=== PATIENT | male | born 1950 | race Caucasian/White ===

== ENCOUNTER 2017-03-11 11:12 | Inpatient (IN) ==
--- NOTE | 2017-03-11 11:21 | Emergency Department Note ---
Disposition Clinical Impression: Bleeding, Elevated troponin, Pleural effusion, Abdominal wall cellulitis Leukocytosis Qualifiers: Leukocytosis type: unspecified Qualified Code(s): D72.829 - Elevated white blood cell count, unspecified Anemia Qualifiers: Anemia type: unspecified type Qualified Code(s): D64.9 - Anemia, unspecified Chest pain Qualifiers: Chest pain type: unspecified Qualified Code(s): R07.9 - Chest pain, unspecified Dyspnea Qualifiers: Dyspnea type: unspecified Qualified Code(s): R06.00 - Dyspnea, unspecified Pneumonia Qualifiers: Pneumonia type: due to unspecified organism Laterality: bilateral Lung location : lower lobe of lung Qualified Code(s): J18.9 - Pneumonia, unspecified organism Disposition: Admitted As Inpatient Condition: Serious Time of Disposition: 14:15 Chest Pain HPI - General Chief Complaint: ED Chest Pain Stated Complaint: CARLEY, CP Time Seen by Provider: 03/11/17 11:17 Source: patient, EMS Mode of arrival: EMS Limitations: no limitations Vital Signs Reviewed: Yes Nursing Notes Reviewed: Yes - History of Present Illness HPI Narrative: Patient is a 66-year-old male with past medical history of hypertension, diabetes, high cholesterol, previous [place] with stenting, recent removal of hematoma from the left hip/thigh with a MISAEL drain going into the left abdomen. He presents today as a transfer from the [facility] due to chest pain, shortness of breath, hypoxia, elevated troponin. He states that he has had chest pain last 3 days. At first, the pain was in the center of his chest and intermittent, he had associated nausea and vomiting, shortness of breath, radiation of the pain to his left jaw. At that time, it would last for several minutes and then go away. Today, the chest pain has been in the center of his chest, squeezing sensation, constant. He was seen at the [facility] and had a positive troponin at 3.1. He is also hypoxic in the 80s on room air. He was transferred here for further care. Patient also notes that he had a PET scan done about a week ago and was told that he had lung nodules and pneumonia. He was supposed to have a antibiotic called in last week but never received this. Currently complains of shortness of breath, diffuse abdominal pain, mild substernal chest pain. Denies any nausea, vomiting, fevers currently. - Related Data Home Medications Medication Instructions Recorded Confirmed Albuterol Sulfate [Albuterol 2 puff IH Q6HR PRN 12/03/15 03/07/17 Inhaler] Aspirin Enteric Coated [Aspirin EC] 81 mg PO DAILY 12/03/15 03/07/17 Atorvastatin [Lipitor] 10 mg PO HS 12/03/15 03/07/17 FLUoxetine HCl [Prozac] 40 mg PO QAM 12/03/15 03/07/17 Furosemide [Lasix] 20 mg PO BID 12/03/15 03/07/17 Gabapentin [Neurontin] 900 mg PO TID 12/03/15 03/07/17 Ipratropium [ATROVENT Inhaler] 2 puff IH QID PRN 12/03/15 03/07/17 Multivitamin [One Daily Essential] 1 each PO DAILY 12/03/15 03/07/17 Nitroglycerin [Nitrostat] 0.4 mg SL AD PRN 12/03/15 03/07/17 Potassium Chloride [K-Tab ER] 10 meq PO DAILY 12/03/15 03/07/17 Trazodone HCl [TraZODone] 200 mg PO HS 12/03/15 03/07/17 Witch Salma [Preparation H] 1 each TP QID 12/03/15 03/07/17 Calcium Citrate 200 mg PO DAILY 03/07/17 03/07/17 Carvedilol [Coreg] 25 mg PO BID 03/07/17 03/07/17 Dicyclomine [Bentyl] 20 mg PO BID PRN 03/07/17 03/07/17 Isosorbide MONOnitrate (24 HR) 60 mg PO DAILY 03/07/17 03/07/17 [Imdur] Metformin HCl [Glucophage] 1,000 mg PO BID 03/07/17 03/07/17 NIFEdipine [Nifedipine ER] 120 mg PO DAILY 03/07/17 03/07/17 Pantoprazole Sodium [Protonix] 40 mg PO DAILY 03/07/17 03/07/17 Tamsulosin [Flomax] 0.4 mg PO DAILY 03/07/17 03/07/17 Previous Rx's Medication Instructions Recorded Adhesive Tape [Paper Tape] 1 each TP DAILY #1 tape 03/08/17 Docusate [Colace] 100 mg PO BID PRN #30 03/08/17 Gauze Bandage [Gauze Pads] 1 unit TP DAILY #1 pack 03/08/17 Gauze Bandage [Gauze] 1 each TP DAILY #1 pack 03/08/17 OxyCODONE/APAP 10/325 [Percocet 1 each PO Q4HR PRN #42 tab 03/08/17 10/325 MG] Allergies Allergy/AdvReac Type Severity Reaction Status Date / Time No Known Allergies Allergy Verified 03/07/17 08:11 All systems ED: reviewed and negative except as stated. Constitutional: Denies: fever Cardiovascular: Reports: chest pain, dyspnea on exertion Respiratory: Reports: dyspnea Gastrointestinal: Reports: abdominal pain. Denies: nausea, vomiting, diarrhea Endocrine: Reports: fatigue Chest Pain PMH - Past Medical History Medical history: Reports: COPD, diabetes, hypertension Surgical history: Reports: appendectomy Psychiatric history: Reports: anxiety, depression, panic disorder - Social History Smoking Status: Former smoker Alcohol use: Reports: none Drug use: Reports: none Physical Exam - General Limitations: no limitations General appearance: alert, other (appears fatigued) - Head Head exam: atraumatic, normocephalic, normal inspection - Eye Eye exam: Present: normal appearance, PERRL, EOMI - ENT ENT exam: normal exam, normal oropharynx, mucous membranes moist - Neck Neck exam: Present: normal inspection, full ROM, trachea midline - Chest Chest inspection: Present: normal inspection, symmetric chest wall rise. Absent : tenderness - Respiratory Respiratory exam: Present: other (Mild wheeze in the lateral lower lobes.Mildly tachypnic. ) - Cardiovascular Cardiovascular exam: Present: regular rate, normal rhythm, normal heart sounds - Abdominal Exam Abdominal exam: Present: soft, tenderness (Tenderness of the left abdomen and left flank wiht cellulitic changes and bruising around MISAEL drain site; MISAEL drain has bright red liquid blood in bulb ). Absent: distention, guarding, rebound, rigidity - Extremities Exam Extremities exam: Present: normal inspection, full ROM, pedal edema (Mild edema bilteral LE). Absent: tenderness - Back Exam Back exam: Present: other (left lumbar/flank bruising) - Neurological Exam Neurological exam: Present: alert, oriented X3 - Psychiatric Psychiatric exam: Present: normal affect, normal mood - Skin Skin exam: Present: warm, dry, intact, normal color Course Course Narrative: Vitals currently within normal limits on nasal cannula oxygen 4 L. Physical exam shows fatigued patient with wheezes in bilateral LL. Tenderness of the left abdomen and left flank wiht cellulitic changes and bruising around MISAEL drain site, bruising of left flank and back; MISAEL drain has bright red liquid blood in bulb. We will obtain cardiac workup, CTA of the chest assess for pneumonia versus PE, CT abdomen and pelvis with IV contrast to assess for bleeding. We will repeat troponin and basic labs. We will give patient aspirin as he did not receive this at the [facility]. No chest pain on current assessment. We will give nitroglycerin or morphine depending on blood pressure. EKG shows diffuse ST depressions. No anticoagulation at this point due to active bleeding. We will wait until CT scan comes back and then touch base with cardiology. Patient has been typed and screened and will give 2 units due to hemoglobin of 7.8. 13:19 repeat troponin 7.5, increased from 3.1 at the [facility]. Second EKG was obtained and showed continued ST depression in V3 through V6, also in lead 2. CT shows: IMPRESSION: 1. No acute pulmonary embolism. 2. Bilateral ground-glass opacities throughout the lungs are concerning for an infectious or inflammatory process including atypical infections. 3. Small bilateral pleural effusions. 4. Percutaneous drain within a 16.5 x 7 cm collection in the left gluteal region which could be due to hematoma. Superimposed infection is not excluded. This is at the site of prior fluid collection seen on prior CT scan. 5. Stranding of the subcutaneous fat throughout the left abdomen could be due to edema and/or cellulitis. 6. Enlarged mediastinal lymph nodes are favored to be reactive. Consider follow-up CT scan in 3 months to ensure stability and/or resolution. 13:23 Patient was started on vancomycin, Levaquin, cefepime for pneumonia and left abdominal wall cellulitis. I also called Dr. King with cardiology and discussed heart catheter due to rising troponin level from 3.1 to 7.5, ST depressions seen on EKG, and inability to anticoagulate the patient at this time with heparin due to active bleeding to the left abdominal MISAEL drain. Vitals continue to be stable, not tachycardic, blood pressure 120s over 80s. Dr. King stated that there was no indication for heart cath as this was not a STEMI, and there was a contraindication to heart cath, as any stenting would require antiplatelet therapy. He recommended giving the patient blood and then medical management. Did not think that heart was warranted at this time. 13:[address] Garcia, hospitalist to discuss case (admitting here for transferring for further care), he agreed with Dr. King's plan of care as patient wouldn't be candidate for anticoagulation after cath. He feels that the patient is a candidate for 2 N. and sensitive ICU. Cannot give patient says protocol fluids due to pleural effusions, concern for fluid overload and heart failure. Patient will be receiving blood which will help with anemia and help with fluid status. Dr. Garcia accepted for further care. Chest X-Ray 03/11/17 11:21 IMPRESSION: Possible early right lower lobe pneumonia D/ / Davin Weaver MD / Davin Weaver MD Interpreting Provider: Davin Weaver MD Abdomen/Pelvis CT 03/11/17 11:24 IMPRESSION: 1. No acute pulmonary embolism. 2. Bilateral ground-glass opacities throughout the lungs are concerning for an infectious or inflammatory process including atypical infections. 3. Small bilateral pleural effusions. 4. Percutaneous drain within a 16.5 x 7 cm collection in the left gluteal region which could be due to hematoma. Superimposed infection is not excluded. This is at the site of prior fluid collection seen on prior CT scan. 5. Stranding of the subcutaneous fat throughout the left abdomen could be due to edema and/or cellulitis. 6. Enlarged mediastinal lymph nodes are favored to be reactive. Consider follow-up CT scan in 3 months to ensure stability and/or resolution. D/ / Alireza Herr MD / Alireza Herr MD Interpreting Provider: Alireza Herr MD Chest CTA 03/11/17 11:24 IMPRESSION: 1. No acute pulmonary embolism. 2. Bilateral ground-glass opacities throughout the lungs are concerning for an infectious or inflammatory process including atypical infections. 3. Small bilateral pleural effusions. 4. Percutaneous drain within a 16.5 x 7 cm collection in the left gluteal region which could be due to hematoma. Superimposed infection is not excluded. This is at the site of prior fluid collection seen on prior CT scan. 5. Stranding of the subcutaneous fat throughout the left abdomen could be due to edema and/or cellulitis. 6. Enlarged mediastinal lymph nodes are favored to be reactive. Consider follow-up CT scan in 3 months to ensure stability and/or resolution. D/ / Alireza Herr MD / Alireza Herr MD Interpreting Provider: Alireza Herr MD Vital Signs Temperature 99.2 F 03/11/17 11:14 Pulse Rate 92 03/11/17 11:14 Respiratory Rate 18 03/11/17 11:14 Blood Pressure 112/75 03/11/17 11:14 O2 Sat by Pulse Oximetry 83 03/11/17 11:14 Temperature 99 F 03/11/17 14:07 Pulse Rate 95 03/11/17 14:07 Respiratory Rate 22 03/11/17 14:07 Blood Pressure 89/73 03/11/17 14:07 O2 Sat by Pulse Oximetry 92 03/11/17 12:35 Oxygen Delivery Oxygen Delivery Nasal Cannula Chest Pain - MDM Narrative Medical decision making narrative: repeat troponin 7.5, [facility] Second EKG was obtained and showed continued ST depression in V3 through V6, also in lead 2. CT shows: IMPRESSION: 1. No acute pulmonary embolism. 2. Bilateral ground-glass opacities throughout the lungs are concerning for an infectious or inflammatory process including atypical infections. 3. Small bilateral pleural effusions. 4. Percutaneous drain within a 16.5 x 7 cm collection in the left gluteal region which could be due to hematoma. Superimposed infection is not excluded. This is at the site of prior fluid collection seen on prior CT scan. 5. Stranding of the subcutaneous fat throughout the left abdomen could be due to edema and/or cellulitis. 6. Enlarged mediastinal lymph nodes are favored to be reactive. Consider follow-up CT scan in 3 months to ensure stability and/or resolution. 13:23 Patient was started on vancomycin, Levaquin, cefepime for pneumonia and left abdominal wall cellulitis. I also called Dr. Kign with cardiology and discussed heart catheter due to rising troponin level from 3.1 to 7.5, ST depressions seen on EKG, and inability to anticoagulate the patient at this time with heparin due to active bleeding to the left abdominal MISAEL drain. Vitals continue to be stable, not tachycardic, blood pressure 120s over 80s. Dr. King stated that there was no indication for heart cath as this was not a STEMI, and there was a contraindication to heart cath, as any stenting would require antiplatelet therapy. He recommended giving the patient blood and then medical management. Did not think that heart was warranted at this time. 13:[address] Garcia, hospitalist to discuss case (admitting here for transferring for further care), he agreed with Dr. King's plan of care as patient wouldn't be candidate for anticoagulation after cath. He feels that the patient is a candidate for 2 N. and sensitive ICU. Cannot give patient says protocol fluids due to pleural effusions, concern for fluid overload and heart failure. Patient will be receiving blood which will help with anemia and help with fluid status. Dr. Garcia accepted for further care. - Medical Records Medical records reviewed: Yes I reviewed the patient's medical records. - Lab Data Lab results reviewed: Yes I reviewed the patient's lab results. Result diagrams: 03/11/17 11:29 03/11/17 11:29 Lab Results 03/11/17 03/11/17 03/11/17 Range/Units 11:29 11:29 11:29 WBC 15.3 H (4.3-11.1) K/mcL RBC 2.67 L (4.19-5.50) M/mcL Hgb 7.8 L D (12.9-16.9) g/dL Hct 24.3 L (37.5-50.1) % MCV 91.0 (83.0-100.0) fL MCH 29.2 (28.0-33.3) pg MCHC 32.1 (31.6-35.5) g/dL RDW 14.1 (11.5-14.5) % Plt Count 266 (140-400) K/mcL MPV 10.7 (9.4-12.4) fL Immature Gran % 0.9 (0-4) % Seg Neutrophils % 80.8 % Lymphocytes % 10.1 % Monocytes % 7.0 % Eosinophils % 0.7 % Basophils % 0.5 % Neutrophils # 12.3 H (1.6-8.9) K/mcL Lymphocytes # 1.6 (0.6-4.6) K/mcL Monocytes # 1.1 (0.0-1.3) K/mcL Eosinophils # 0.1 (0.0-0.6) K/mcL Basophils # 0.1 (0.0-0.2) K/mcL Nucleated RBCs/100 WBC 0.3 H (0) /100 WBC Immature Plt Fraction 4.9 (1.1-6.1) % PT 12.7 H (9.4-12.1) Seconds INR 1.2 APTT 28.5 (26.0-36.0) Seconds Sodium 136 (136-145) mEq/L Potassium 4.4 (3.5-4.5) mEq/L Chloride 103 (98-109) mEq/L Carbon Dioxide 24 (19-29) mEq/L BUN 23 (8-26) mg/dL Creatinine 1.01 (0.72-1.25) mg/dL Est GFR ( Amer) > 60 (> 60) Est GFR (Non-Af Amer) > 60 (> 60) BUN/Creatinine Ratio 23 (6-26) Glucose 142 H (70-99) mg/dL Calculated Osmolality 288 (280-300) Lactic Acid (0.5-2.2) mmol/L Calcium 9.6 (8.6-10.8) mg/dL Troponin I (0-0.03) ng/mL Blood Type Antibody Screen Crossmatch 03/11/17 03/11/17 03/11/17 Range/Units 11:29 12:16 12:16 WBC (4.3-11.1) K/mcL RBC (4.19-5.50) M/mcL Hgb (12.9-16.9) g/dL Hct (37.5-50.1) % MCV (83.0-100.0) fL MCH (28.0-33.3) pg MCHC (31.6-35.5) g/dL RDW (11.5-14.5) % Plt Count (140-400) K/mcL MPV (9.4-12.4) fL Immature Gran % (0-4) % Seg Neutrophils % % Lymphocytes % % Monocytes % % Eosinophils % % Basophils % % Neutrophils # (1.6-8.9) K/mcL Lymphocytes # (0.6-4.6) K/mcL Monocytes # (0.0-1.3) K/mcL Eosinophils # (0.0-0.6) K/mcL Basophils # (0.0-0.2) K/mcL Nucleated RBCs/100 WBC (0) /100 WBC Immature Plt Fraction (1.1-6.1) % PT (9.4-12.1) Seconds INR APTT (26.0-36.0) Seconds Sodium (136-145) mEq/L Potassium (3.5-4.5) mEq/L Chloride (98-109) mEq/L Carbon Dioxide (19-29) mEq/L BUN (8-26) mg/dL Creatinine (0.72-1.25) mg/dL Est GFR ( Amer) (> 60) Est GFR (Non-Af Amer) (> 60) BUN/Creatinine Ratio (6-26) Glucose (70-99) mg/dL Calculated Osmolality (280-300) Lactic Acid 2.3 H (0.5-2.2) mmol/L Calcium (8.6-10.8) mg/dL Troponin I 7.50 H* (0-0.03) ng/mL Blood Type B POSITIVE Antibody Screen NEGATIVE Crossmatch See Detail - Radiology Data Radiology results reviewed: Yes I reviewed the patient's radiology results. - EKG Data EKG attestation: Yes I reviewed and interpreted this EKG. Maksim - Maksim Situation: Demographics, MOA Background: Presenting Complaint, Relevant PMH, Meds, & Allergies Assessment: Vital Signs, Course and respsone to treatment, Exam Concerns, Patient/Family Expectation, Pertinant Lab Results, Outstanding Labs Recommendation: Barrier(s) to disposition, Recommendation based on pending studies, treatments, or consults Maksim Report Given to: Dr. Jose Schaeffer Repor Time: 14:15
[2017-03-11] MEDS ORDERED: Aspirin 325 MG TABLET PO ONE (11:29)
[2017-03-11] MEDS ORDERED: Nitroglycerin 0.4 MG TAB.SUBL SL PRN (11:29)
[2017-03-11 11:35] LABS: Basophils # 0.1 K/mcL (0.0-0.2); Basophils % 0.5 %; Eosinophils # 0.1 K/mcL (0.0-0.6); Eosinophils % 0.7 %; Hematocrit 24.3 % (37.5-50.1); Immature Granulocytes % 0.9 % (0-4); Immature Platelets 4.9 % (1.1-6.1); Lymphocytes # 1.6 K/mcL (0.6-4.6); Lymphocytes % 10.1 %; Mean Corpuscular HGB Conc 32.1 g/dL (31.6-35.5); Mean Corpuscular Hemoglobin 29.2 pg (28.0-33.3); Mean Platelet Volume 10.7 fL (9.4-12.4); Monocytes # 1.1 K/mcL (0.0-1.3); Neutrophils # 12.3 K/mcL (1.6-8.9); Nucleated Red Blood Cells 0.3 /100 WBC (0); Platelet Count 266 K/mcL (140-400); Red Blood Count 2.67 M/mcL (4.19-5.50); Red Cell Distribution Width 14.1 % (11.5-14.5); Segmented Neutrophils % 80.8 %
--- NOTE | 2017-03-11 11:39 | Emergency Department Note ---
START Narrative - START START: I examined this patient and my medical decision-making was reviewed with the Resident Physician. I agree with the documented findings, disposition and treatment plan as described except to the extent set forth below. 66yo M here for multiple issues. [facility] 1)pt found to have pneumonia on recent PET Scan in last week or so at the [facility]. it was done for pulmonary nodules. 2) [facility] sats 84% on RA per their report. 3) pt found to have elevated trop of 3. ekg with st depression and t wave inversion c/w ischemia and likely evolving TN. 4)pt just had left hip hematoma evacuation done 4 days ago for a chronic fluid/ mass accumulation from previous trauma. 5)pt has diffuse ecchymosis of the left hip/ left flank and lumbar region. i'm concerned for possible retropeitoneal hematoma and i feel that needs ruled out first before anticoagulation for the cardiac issue. 6)eval with CT chest/abd/pelvis
[2017-03-11 11:45] LABS: INR 1.2; Prothrombin Time 12.7 Seconds (9.4-12.1)
[2017-03-11 11:47] LABS: BUN/Creatinine Ratio 23 (6-26); Blood Urea Nitrogen 23 mg/dL (8-26); Calcium 9.6 mg/dL (8.6-10.8); Carbon Dioxide 24 mEq/L (19-29); Chloride 103 mEq/L (98-109); Glucose 142 mg/dL (70-99); Osmolality,Calculated 288 (280-300); Potassium 4.4 mEq/L (3.5-4.5); Sodium 136 mEq/L (136-145); eGFR For African Americans > 60 (> 60); eGFR For Non-African Americans > 60 (> 60)
[2017-03-11 11:48] LABS: Activated Partial Thrombo Time 28.5 Seconds (26.0-36.0)
[2017-03-11 11:53] LABS: Hemoglobin 7.8 g/dL (12.9-16.9)
[2017-03-11] MEDS ORDERED: 0.9 % Sodium Chloride 1,000 ML IVC ONE (12:06)
[2017-03-11] MEDS ORDERED: 0.9 % Sodium Chloride 1,000 ML ONE (12:14)
[2017-03-11] MEDS ORDERED: Levofloxacin 500 MG/100 ML 500 MG/100 ML BAG IVPB ONE (13:08)
[2017-03-11] MEDS ORDERED: 0.9 % Sodium Chloride 250 ML ONE (13:43)
[2017-03-11] MEDS ORDERED: Vancomycin 1,750 MG in D5% in Water 250 ML IVPB SCH ×2 (14:00→15:00)
[2017-03-11] MEDS ORDERED: Vancomycin 2,000 MG in D5% in Water 500 ML IVPB ONE (14:00)
[2017-03-11] MEDS ORDERED: Acetaminophen 325 MG TABLET PO PRN (14:22)
[2017-03-11] MEDS ORDERED: Naloxone 0.4 MG/ML INJ IVP PRN (14:22)
[2017-03-11] MEDS ORDERED: Ondansetron 4 MG/2 ML VIAL IVP PRN (14:22)
[2017-03-11] MEDS ORDERED: 0.9 % Sodium Chloride 1,000 ML IVC SCH ×2 (14:30→15:15)
[2017-03-11] MEDS ORDERED: Albuterol 2.5 MG/3 ML NEBULIZER IH PRN (14:33)
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
[2017-03-11] MEDS ORDERED: D5% in Water 1,000 ML IVC PRN ×2 (15:00→19:08)
[2017-03-11] MEDS ORDERED: Dextrose Gel 15 GM PO PRN ×4 (15:00→19:08)
[2017-03-11] MEDS ORDERED: *HR* Dextrose 50 % in Water (Syg) 50 ML SYRINGE IVP PRN ×2 (15:00→19:08)
[2017-03-11] MEDS: Ipratropium/Albuterol Neb 3 ML IH SCH ×2 (15:59→22:39)
[2017-03-11] MEDS ORDERED: Cefepime HCl 2,000 MG in D5% in Water (Mini-Bag+) 100 ML IVPB SCH (16:00)
[2017-03-11] MEDS ORDERED: FLUARIX QUAD 2017-18 36MOS UP/PF 0.5 ML SYRINGE IM ONE (16:02)
[2017-03-11] MEDS: Cefepime HCl 2,000 MG in D5% in Water (Mini-Bag+) 100 ML IVPB SCH (16:32)
[2017-03-11] MEDS ORDERED: Insulin LISPRO 300 UNITS/3 ML VIAL SQ SCH (18:00)
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
[2017-03-11 19:09] LABS: Basophils # 0.1 K/mcL (0.0-0.2); Basophils % 0.3 %; Eosinophils # 0.2 K/mcL (0.0-0.6); Eosinophils % 1.4 %; Hematocrit 24.8 % (37.5-50.1); Hemoglobin 7.9 g/dL (12.9-16.9); Immature Granulocytes % 0.7 % (0-4); Immature Platelets 5.3 % (1.1-6.1); Lymphocytes # 1.8 K/mcL (0.6-4.6); Lymphocytes % 11.9 %; Mean Corpuscular HGB Conc 31.9 g/dL (31.6-35.5); Mean Corpuscular Hemoglobin 28.7 pg (28.0-33.3); Mean Corpuscular Volume 90.2 fL (83.0-100.0); Mean Platelet Volume 10.8 fL (9.4-12.4); Monocytes # 1.2 K/mcL (0.0-1.3); Monocytes % 8.2 %; Neutrophils # 11.6 K/mcL (1.6-8.9); Nucleated Red Blood Cells 0.2 /100 WBC (0); Platelet Count 254 K/mcL (140-400); Red Blood Count 2.75 M/mcL (4.19-5.50); Red Cell Distribution Width 14.3 % (11.5-14.5); Segmented Neutrophils % 77.5 %
[2017-03-11] MEDS ORDERED: Furosemide 40 MG/4 ML VIAL IVP ONE (20:06)
--- NOTE | 2017-03-11 20:38 | Event Note ---
Date of Encounter: 03/11/17 Time of Encounter: 20:34 Notified by nursing that patient is having difficulty breathing wearing 8L supplemental O2 via NC with sats between 87-90%. Patient has diffuse crackles in bilateral bases on exam. IVF held and Lasix 40mg IV ordered. Will place patient on BiPap. RT notified. Of note, repeat troponin is increased from 7.5 to 7.85, will continue medical management at this time.
[2017-03-11] MEDS: Insulin LISPRO 300 UNITS/3 ML VIAL SQ SCH (21:02)
[2017-03-11] MEDS: GuaiFENesin/Pseudophedrine TABLET PO SCH (21:02)
[2017-03-12] MEDS: Cefepime HCl 2,000 MG in D5% in Water (Mini-Bag+) 100 ML IVPB SCH ×4 (00:32→23:25)
[2017-03-12 00:57] LABS: ABG Base Excess 5.8 mEq/L (-2.0 to 3.0); ABG HCO3 31 mEq/L (21-27); ABG Oxygen Saturation 92 % (95-98); ABG PCO2 45 mmHg (35-45); ABG PH 7.44 pH Units (7.32-7.45); ABG PO2 60 mmHg (85-104)
[2017-03-12 01:00] LABS: Blood Gas FiO2 64 %
[2017-03-12] MEDS ORDERED: Vancomycin 2,000 MG in D5% in Water 500 ML IVPB SCH (02:00)
[2017-03-12 03:05] LABS: Basophils # 0.1 K/mcL (0.0-0.2); Basophils % 0.4 %; Eosinophils # 0.1 K/mcL (0.0-0.6); Hematocrit 25.2 % (37.5-50.1); Hemoglobin 7.9 g/dL (12.9-16.9); Lymphocytes # 0.9 K/mcL (0.6-4.6); Lymphocytes % 7.2 %; Mean Corpuscular HGB Conc 31.3 g/dL (31.6-35.5); Mean Corpuscular Hemoglobin 28.3 pg (28.0-33.3); Mean Corpuscular Volume 90.3 fL (83.0-100.0); Mean Platelet Volume 10.4 fL (9.4-12.4); Monocytes % 7.8 %; Neutrophils # 10.8 K/mcL (1.6-8.9); Nucleated Red Blood Cells 0.4 /100 WBC (0); Platelet Count 240 K/mcL (140-400); Red Blood Count 2.79 M/mcL (4.19-5.50); Red Cell Distribution Width 14.3 % (11.5-14.5); Segmented Neutrophils % 82.6 %
[2017-03-12 03:18] LABS: BUN/Creatinine Ratio 19 (6-26); Blood Urea Nitrogen 21 mg/dL (8-26); Calcium 9.1 mg/dL (8.6-10.8); Carbon Dioxide 27 mEq/L (19-29); Chloride 101 mEq/L (98-109); Glucose 194 mg/dL (70-99); Osmolality,Calculated 290 (280-300); Potassium 3.8 mEq/L (3.5-4.5); Sodium 136 mEq/L (136-145); eGFR For African Americans > 60 (> 60); eGFR For Non-African Americans > 60 (> 60)
[2017-03-12] MEDS: Ipratropium/Albuterol Neb 3 ML IH SCH ×4 (04:13→23:01)
[2017-03-12] MEDS ORDERED: Perflutren Lipid Microsphere 1.3 ML in 0.9 % Sodium Chloride 8.7 ML IVP ONE (07:10)
[2017-03-12] MEDS: Aspirin Enteric Coated 81 MG Tablet PO SCH (07:56)
[2017-03-12] MEDS: GuaiFENesin/Pseudophedrine TABLET PO SCH ×2 (07:56→21:13)
[2017-03-12] MEDS: FLUoxetine 20 MG CAPSULE PO SCH (07:56)
[2017-03-12] MEDS: Insulin LISPRO 300 UNITS/3 ML VIAL SQ SCH ×4 (07:56→21:17)
[2017-03-12] MEDS ORDERED: [UNRECOGNIZED DRUG - SUPPLY] TP SCH (09:00)
--- NOTE | 2017-03-12 09:52 | Cardiology Consult Note ---
Date of Encounter: 03/12/17 Time of Encounter: 10:00 Assessment and Plan (1) NSTEMI (non-ST elevated myocardial infarction) Current Visit: Yes Status: Acute Peak troponin 7.8 with downward trend in the setting of acute respiratory failure and acute blood loss anemia--HgB 7. Chest pain/discomfort likely secondary to demand ischemia secondary to acute anemia, recommend PRBC infusion with goal HgB 10.0. No heparin gtt due to acute blood loss anemia. Continue asa, statin, and betablocker. No indication for Cardiac rehab at this time. Echocardiogram pending. Patient is not a candidate for LHC or invasive evaluation due to acute anemia. Hx of negative nuclear stress in November 2015. Further recommendations based on echo findings. (2) Acute hypoxemic respiratory failure Current Visit: Yes Status: Acute SPO2 83% upon presentation, continues to have dyspnea upon exam; likely secondary to acute anemia. On high-flow oxygen. Defer further mgmt to primary service. (3) Anemia Current Visit: Yes Status: Acute Acute blood loss anemia in the post-operative setting. Patient continues to be hypoxic requiring high-flow oxygen, has conversational dyspnea, and is orthopneic. Recommend PRBC infusion with goal HgB 10. Will give IV lasix x1 dose now. Further mgmt to surgery/primary service. Qualifiers: Anemia type: unspecified type Qualified Code(s): D64.9 - Anemia, unspecified Discussion w patient/family: The assessment and plan as outlined above was discussed with the patient and/or family members who expressed understanding and agreement. All questions were answered. Thank you for involving us in the care of your patient. Please call with any questions. The patient will be discussed and reviewed with Dr. Angus King; changes to be made accordingly. History of Present Illness Consult date: 03/12/17 Requesting physician: Jaguar Hahn Consult reason: Elevated troponin Chief complaint: Shortness of breath History of present illness: Mr. Weber is a 66 year old male with PMHx significant for DMII, HTN, HLD, obesity, FLAVIO (unable to tolerate mask), and COPD who presented to the ED with difficulty in breathing. Associated symptoms include chest tightness, PND, and orthopnea. He underwent evacuation of hematoma (right hip) from remote trauma last Monday. Upon arrival to ED he was found to have acute blood loss anemia ( HgB 7) with elevated troponin. SPO2 83% upon arrival. CTA chest demonstrated bilateral ground glass opacities and small bilateral pleural effusions. Prior CV testing: TTE 12/04/15: LVEF 60%, mild LVDD, no significant valvular dysfunction, normal wall motion Regadenoson nuclear 12/04/15: perfusion imaging negative for ischemia or infarct. Past Med Surg Social Fam HX - Past Medical History Attestation: Yes The following information was validated with the patient. Source: patient, old records reviewed Medical history: COPD, diabetes, hyperlipidemia, hypertension, other (FLAVIO) Psychiatric history: anxiety, depression, panic disorder - Past Surgical History Surgical History: appendectomy, other (hematoma removal left hip) - Social History Smoking Status: Former smoker Smokeless Tobacco Status: No Alcohol use: none Drug use: none - Family History Son Family Member Ethnicity: Non- Twin of Family Member: Yes, Fraternal Living Status: Still Living Hx Family Cardiac Disorders: Yes (HTN) Medications and Allergies Albuterol Sulfate [Albuterol Inhaler] 2 puff IH Q6HR PRN 12/03/15 [History] Aspirin Enteric Coated [Aspirin EC] 81 mg PO DAILY 12/03/15 [History] Atorvastatin [Lipitor] 10 mg PO HS 12/03/15 [History] FLUoxetine HCl [Prozac] 40 mg PO QAM 12/03/15 [History] Furosemide [Lasix] 20 mg PO BID 12/03/15 [History] Gabapentin [Neurontin] 900 mg PO TID 12/03/15 [History] Ipratropium [ATROVENT Inhaler] 2 puff IH QID PRN 12/03/15 [History] Multivitamin [One Daily Essential] 1 each PO DAILY 12/03/15 [History] Nitroglycerin [Nitrostat] 0.4 mg SL AD PRN 12/03/15 [History] Potassium Chloride [K-Tab ER] 10 meq PO DAILY 12/03/15 [History] Trazodone HCl [TraZODone] 200 mg PO HS 12/03/15 [History] Calcium Citrate 200 mg PO DAILY 03/07/17 [History] Carvedilol [Coreg] 25 mg PO BID 03/07/17 [History] Dicyclomine [Bentyl] 20 mg PO BID PRN 03/07/17 [History] Isosorbide MONOnitrate (24 HR) [Imdur] 60 mg PO DAILY 03/07/17 [History] Metformin HCl [Glucophage] 1,000 mg PO BID 03/07/17 [History] NIFEdipine [Nifedipine ER] 120 mg PO DAILY 03/07/17 [History] Pantoprazole Sodium [Protonix] 40 mg PO DAILY 03/07/17 [History] Tamsulosin [Flomax] 0.4 mg PO DAILY 03/07/17 [History] Docusate [Colace] 100 mg PO BID PRN #30 03/08/17 [Rx] OxyCODONE/APAP 10/325 [Percocet 10/325 MG] 1 each PO Q4HR PRN #42 tab 03/08/17 [ Rx] 3 Allergy/AdvReac Type Severity Reaction Status Date / Time No Known Allergies Allergy Verified 03/07/17 08:11 All Systems Review: A 10-system review of systems was performed and is negative for pertinent findings except as documented above in the HPI. - Cardiovascular Cardiovascular: as per HPI Physical Examination Vital Signs, Last 4 Hours Temp Pulse Resp BP Pulse Ox 03/12/17 07:27 98.3 F 91 18 122/63 95 03/12/17 07:00 90 03/12/17 06:42 18 95 General: Conversant, Other (conversational dyspnea) Cardiac: Reg Rate and Rhythm, Normal S1 and S2 Lungs: Other (Decreased throughout) Neuro: Alert and responsive Abdomen: Soft Extremities: No Edema, Normal Pulses Results 03/12/17 02:59 03/12/17 02:59 Lab Results 03/11/17 03/11/17 03/11/17 18:48 18:48 20:18 WBC 15.0 H Hgb 7.9 L Hct 24.8 L Plt Count 254 Sodium Potassium Chloride Carbon Dioxide BUN Creatinine Glucose Calcium Troponin I 7.85 H* 7.50 H* 03/12/17 03/12/17 03/12/17 02:59 02:59 02:59 WBC 13.1 H Hgb 7.9 L Hct 25.2 L Plt Count 240 Sodium 136 Potassium 3.8 Chloride 101 Carbon Dioxide 27 BUN 21 Creatinine 1.10 Glucose 194 H Calcium 9.1 Troponin I 5.58 H* Active Medications Acetaminophen (Tylenol) 650 mg PO Q6HR PRN PRN Reason: Mild Pain (1-3) Stop: 09/10/17 14:23 Albuterol Sulfate (Proventil Neb) 2.5 mg IH Q2H PRN; Protocol PRN Reason: Shortness Of Breath/Wheezing Stop: 09/10/17 14:34 Last Admin: 03/12/17 06:40 Dose: 2.5 mg Albuterol/Ipratropium (Duoneb) 3 ml IH [id number] [facility]GAN Stop: 09/10/17 16:01 Last Admin: 03/12/17 04:13 Dose: 3 ml Aspirin (Aspirin Ec) 81 mg PO DAILY [facility] Stop: 09/11/17 09:01 Last Admin: 03/12/17 07:56 Dose: 81 mg Atorvastatin Calcium (Lipitor) 40 mg PO HS [facility] Stop: 09/10/17 21:01 Last Admin: 03/11/17 21:02 Dose: 40 mg Carvedilol (Coreg) 25 mg PO BID [facility] PRN Reason: Protocol Stop: 09/10/17 21:01 Last Admin: 03/12/17 07:56 Dose: 25 mg Dextrose/Water (Dextrose 50% (Syg)) 25 ml IVP AD PRN PRN Reason: Hypoglycemia Stop: 09/10/17 15:01 Dextrose/Water (Dextrose 50% (Syg)) 25 ml IVP AD PRN PRN Reason: Hypoglycemia Stop: 09/10/17 19:09 Dicyclomine HCl (Bentyl) 20 mg PO BID PRN PRN Reason: ESOPHAGEAL SPASMS Stop: 09/10/17 20:55 Last Admin: 03/12/17 08:10 Dose: 20 mg Docusate Sodium (Colace) 100 mg PO BID PRN; Protocol PRN Reason: Constipation Stop: 09/10/17 14:32 Fluoxetine HCl (Prozac) 40 mg PO QAM [facility] Stop: 09/11/17 09:01 Last Admin: 03/12/17 07:56 Dose: 40 mg Glucagon (Glucagen) 1 mg IM ONCE PRN PRN Reason: Hypoglycemia Stop: 09/10/17 15:01 Guaifenesin (Mucinex D) 1 each PO BID [facility] PRN Reason: Protocol Stop: 09/10/17 21:01 Last Admin: 03/12/17 07:56 Dose: 1 each Sodium Chloride (0.9 % Sodium Chloride) 1,000 mls @ 0 mls/hr IVC .Q0M [facility] PRN Reason: KVO Stop: 09/10/17 14:31 Cefepime HCl 2,000 mg/ (Dextrose) 100 mls @ 200 mls/hr IVPB Q8HR MEGAN Stop: 09/10/17 16:01 Last Admin: 03/12/17 07:57 Dose: 200 mls/hr Dextrose (Dextrose 5%) 1,000 mls @ 100 mls/hr IVC .Q10H PRN PRN Reason: HYPOGLYCEMIA Stop: 09/10/17 15:01 Sodium Chloride (0.9 % Sodium Chloride) 1,000 mls @ 100 mls/hr IVC .Q10H [facility]GAN Stop: 09/10/17 15:16 Last Admin: 03/11/17 16:26 Dose: 100 mls/hr Dextrose (Dextrose 5%) 1,000 mls @ 100 mls/hr IVC .Q10H PRN PRN Reason: HYPOGLYCEMIA Stop: 09/10/17 19:09 Vancomycin HCl 2,000 mg/ (Dextrose) 500 mls @ 250 mls/hr IVPB Q12H [facility] Stop: 09/11/17 16:01 Insulin Human Lispro (Humalog) 0 units SQ ACHS [facility] PRN Reason: Protocol Stop: 09/10/17 21:01 Last Admin: 03/12/17 07:56 Dose: 2 units Naloxone HCl (Narcan) 0.4 mg IVP Q2MIN PRN PRN Reason: Opioid Reversal Stop: 09/10/17 14:23 Nitroglycerin (Nitroglycerin) 0.4 mg SL Q5MIN PRN PRN Reason: Chest Pain Stop: 09/10/17 11:30 Ondansetron HCl (Zofran) 4 mg IVP Q8HR PRN PRN Reason: Nausea And Vomiting Stop: 09/10/17 14:23 Oxycodone/Acetaminophen (Percocet 10/325) 1 each PO Q4HR PRN PRN Reason: Pain Stop: 09/11/17 10:49 - Imaging and Cardiology Stress Test: report reviewed Echo: report reviewed Other Results: 12 hour tele: avg HR=93 SR. - EKG Interpretation EKG results cardiology: personally reviewed Consult Discharge Plan - Plan [facility]errals: [facility] [Primary Care Provider] -
[2017-03-12] MEDS ORDERED: Furosemide 40 MG/4 ML VIAL IVP ONE (10:24)
[2017-03-12] MEDS: *HR* OxyCODONE/APAP 10/325 TABLET PO PRN ×2 (10:53→21:14)
--- NOTE | 2017-03-12 13:46 | General Surgery Progress Note ---
Date of Encounter: 03/12/17 Time of Encounter: 13:43 - Assessment and Plan (1) Hip hematoma, left Current Visit: No Status: Acute It appears that the incision is healing well again with no signs of infection or erythema. There is ecchymosis which will continue to fade over the next week or 2. There is no evidence of active bleeding. I reviewed the CT scan images and report which shows no evidence of extravasation or active bleeding or tracking along the fascial planes. There is the expected hematoma within the cavity which will be reabsorbed by the body over time. Continue with daily dressing changes and I will follow with the patient as an outpatient. We will sign off. Think you very much. Qualifiers: Encounter type: initial encounter Qualified Code(s): S70.02XA - Contusion of left hip, initial encounter Subjective Patient reports: no new complaints, other (Admits to SOB at night) Objective Vital Signs - Last 8 Hours Temp Pulse Resp BP Pulse Ox 03/12/17 12:08 99.0 F 84 16 136/78 94 03/12/17 11:00 67 03/12/17 10:57 18 94 03/12/17 07:27 98.3 F 91 18 122/63 95 03/12/17 07:00 90 03/12/17 06:42 18 95 Intake and Output 03/11/17 03/12/17 03/12/17 23:59 07:59 15:59 Intake Total 446 / 446 600 / 600 215 / 215 Output Total 850 / 850 790 / 790 155 / 155 Balance -404 / -404 -190 / -190 60 / 60 Intake: IV Fluids 100 / 100 600 / 600 95 / 95 Maxipime 2,000 MG In 100 / 100 100 / 100 95 / 95 Dextrose 5% (Minibag+) 100 ML 100 ML @ 200 mls/ hr IVPB Q8HR ME[facility] Rx#: [id number] Vancocin 2,000 MG In 500 / 500 Dextrose 5% 500 ML @ 250 mls/hr IVPB Q12H MEGAN Rx#: [id number] Oral 60 / 60 120 / 120 Blood Product 286 / 286 Rbcs Leuko Poor As-1 286 / 286 Unit [id number] Output: Urine 800 / 800 750 / 750 125 / 125 Wound Drainage 50 / 50 40 / 40 30 / 30 LEFT FLANK 50 / 50 40 / 40 30 / 30 Other: Meal Dinner Lunch Percent of Meal Consumed 100% 15% Weight 127.63 kg Blood Glucose* 162 174 172 - Abdomen Abdomen: Present: bowel sounds present, soft (obese), non tender - Musculoskeletal other (Left hip/buttock incision is healing well. No erythema. Noted left flank ecchymosis still present. No evidence of expanding hematoma or active bleeding. MISAEL in place with drainage noted.) - Labs 03/12/17 02:59 03/12/17 02:59 Diabetes panel 03/12/17 Range/Units 02:59 Sodium 136 (136-145) mEq/L Potassium 3.8 (3.5-4.5) mEq/L Chloride 101 (98-109) mEq/L Carbon Dioxide 27 (19-29) mEq/L BUN 21 (8-26) mg/dL Creatinine 1.10 (0.72-1.25) mg/dL Glucose 194 H (70-99) mg/dL Calcium 9.1 (8.6-10.8) mg/dL Calcium panel 03/12/17 Range/Units 02:59 Calcium 9.1 (8.6-10.8) mg/dL Pituitary panel 03/12/17 Range/Units 02:59 Sodium 136 (136-145) mEq/L Potassium 3.8 (3.5-4.5) mEq/L Chloride 101 (98-109) mEq/L Carbon Dioxide 27 (19-29) mEq/L BUN 21 (8-26) mg/dL Creatinine 1.10 (0.72-1.25) mg/dL Glucose 194 H (70-99) mg/dL Calcium 9.1 (8.6-10.8) mg/dL Adrenal panel 03/12/17 Range/Units 02:59 Sodium 136 (136-145) mEq/L Potassium 3.8 (3.5-4.5) mEq/L Chloride 101 (98-109) mEq/L Carbon Dioxide 27 (19-29) mEq/L BUN 21 (8-26) mg/dL Creatinine 1.10 (0.72-1.25) mg/dL Glucose 194 H (70-99) mg/dL Calcium 9.1 (8.6-10.8) mg/dL - VTE Documentation of Mechanical Device: Intermittent pneumatic compression device Consult Discharge Plan - Plan [facility]errals: [facility] [Primary Care Provider] -
[2017-03-12] MEDS: Vancomycin 2,000 MG in D5% in Water 500 ML IVPB SCH (17:09)
[2017-03-12] MEDS ORDERED: Furosemide 20 MG/2 ML VIAL IVP ONE (17:30)
--- NOTE | 2017-03-12 17:39 | Internal Med Progress Note ---
Date of Encounter: 03/12/17 Time of Encounter: 17:35 - Assessment and plan (1) Acute on chronic respiratory failure with hypoxemia Current Visit: Yes Status: Acute (2) NSTEMI (non-ST elevated myocardial infarction) Current Visit: Yes Status: Acute (3) Acute blood loss as cause of postoperative anemia Current Visit: Yes Status: Acute (4) Hip hematoma, left Current Visit: Yes Status: Acute Qualifiers: Encounter type: initial encounter Qualified Code(s): S70.02XA - Contusion of left hip, initial encounter (5) Chest pain Current Visit: Yes Status: Acute Qualifiers: Chest pain type: chest pain due to myocardial ischemia Ischemic chest pain type: unspecified angina pectoris type Qualified Code(s): I20.9 - Angina pectoris, unspecified (6) Diabetes Current Visit: Yes Status: Chronic Qualifiers: Diabetes mellitus type: type 2 Diabetes mellitus complication status: with unspecified complications Diabetes mellitus intermediate insulin use: unspecified intermediate insulin use status Qualified Code(s): E11.8 - Type 2 diabetes mellitus with unspecified complications (7) Hyperlipidemia Current Visit: Yes Status: Chronic Qualifiers: Hyperlipidemia type: unspecified Qualified Code(s): E78.5 - Hyperlipidemia , unspecified (8) HTN (hypertension) Current Visit: Yes Status: Chronic Qualifiers: Hypertension type: essential hypertension Qualified Code(s): I10 - Essential (primary) hypertension - Subjective Interval history: Mr. Weber is a 66 year old male with PMHx significant for DMII, HTN, HLD, obesity, FLAVIO (unable to tolerate mask), and COPD who presented to the ED with difficulty in breathing. Associated symptoms include chest tightness, PND, and orthopnea. He underwent evacuation of hematoma (right hip) from remote trauma last Monday. However MISAEL tube was removed. And claims that from the surgical site he has noted brownish fluid leaking. Surgery has already seen patient and did the CAT scan and rule out any significant bleed or hematoma or infection. He has MISAEL drain back and his left buttock wound. Upon arrival to ED he was found to have acute blood loss anemia (HgB 7) with elevated troponin. SPO2 83% upon arrival. CTA chest demonstrated bilateral ground glass opacities and small bilateral pleural effusions. He appears to be in congestive heart failure. His troponin were elevated and cardiology has seen him and ordered echocardiogram however consider this type II non-STEMI . Due to acute blood loss anemia patient is not a candidate for interventional workup including cardiac. Is recommended to stay on beta margaret, aspirin and statin for now. IV Lasix 40 twice a day started. Hemoglobin A1c and lipid profile ordered for risk stratification. We plan to transfuse him 2 units and keep his hemoglobin above 10. I have ordered Hemoccult stool, iron studies. Patient denies any GI loss no history of hematemesis hematochezia melena abdominal pain nausea vomiting diarrhea have hematuria or any other symptoms otherwise. - Constitutional Vitals: Temp Pulse Resp BP Pulse Ox 99.0 F 92 18 136/78 94 03/12/17 12:08 03/12/17 15:00 03/12/17 16:16 03/12/17 12:08 03/12/17 16:16 General appearance: Present: mild distress (Ill-appearing), A&O X 3 Exam: Left hip has a MISAEL drain producing some pinkish clear fluid - Head Head exam: Present: atraumatic, normocephalic - Eye Eye exam: Present: PERRL, conjuntiva pink, sclera anicteric Pupils: Present: PERRL - Neck Neck exam general surgery: Present: supple, trachea midline. Absent: lymphadenopathy - Respiratory Respiratory exam: Present: CTAB. Absent: accessory muscle use, rales, rhonchi, wheezes - Cardiovascular Cardiovascular exam: Present: RRR, +S1, +S2. Absent: diastolic murmur, gallop, rubs, systolic murmur - GI/Abdominal GI/Abdominal exam: Present: normal bowel sounds, soft, no peritoneal signs. Absent: distended, tenderness - Extremities Exam Extremities exam: Present: warm, radial pulses palpable and symmetrical. Absent : calf tenderness, cyanotic, pedal edema - Neurological Exam Neurological exam: Present: CN II-XII intact, oriented X3, no focal deficits. Absent: pronater drift, facial droop, speech deficit - Skin Skin exam: Present: dry, intact Internal Medicine: Result - Labs CBC & Chem 7: 03/12/17 02:59 03/12/17 02:59 Labs: Short CBC 03/11/17 03/12/17 Range/Units 18:48 02:59 WBC 15.0 H 13.1 H (4.3-11.1) K/mcL Hgb 7.9 L 7.9 L (12.9-16.9) g/dL Hct 24.8 L 25.2 L (37.5-50.1) % Plt Count 254 240 (140-400) K/mcL Neutrophils # 11.6 H 10.8 H (1.6-8.9) K/mcL BMP 03/12/17 02:59 Sodium 136 Potassium 3.8 Chloride 101 Carbon Dioxide 27 BUN 21 Creatinine 1.10 Glucose 194 H Calcium 9.1 Cardiac Enzymes 03/11/17 03/11/17 03/12/17 Range/Units 18:48 20:18 02:59 Troponin I 7.85 H* 7.50 H* 5.58 H* (0-0.03) ng/mL - ABG Interpretation ABG results: ABG ABG pH 7.44 pH Units (7.32-7.45) 03/12/17 00:51 ABG pCO2 45 mmHg (35-45) 03/12/17 00:51 ABG pO2 60 mmHg (85-104) L 03/12/17 00:51 ABG O2 Saturation 92 % (95-98) L 03/12/17 00:51 PT/INR, D-dimer PT 12.7 Seconds (9.4-12.1) H 03/11/17 11:29 - Impressions Impressions Echocardiogram 03/11/17 14:31 Impressions: LVEF 55%. Normal LV wall thickness and function. Borderline mildly dilated left ventricle. Moderate left ventricular diastolic dysfunction. No significant valvular dysfunction. No evidence of pulmonary hypertension. RVSP was not well obtained due to poor TR jet and could be underestimated. Left Ventricular Wall Motion: Rest Echo Findings All wall segments showed normal motion. Findings: Study Quality * Technically sub-optimal due to body habitus. ECG Findings * Normal sinus rhythm. Left Ventricle * LVEF 55%. * Normal LV wall thickness and function. * Borderline mildly dilated left ventricle. * Moderate left ventricular diastolic dysfunction. Right Ventricle * Grossly normal right ventricormal right ventricular structure and function. Left Atrium * Normal left atrial size. Right Atrium * Normal right atrial size. Interatrial Septum * Interatrial septum not well evaluated. Aortic Valve * Aortic valve not well visualized. * No aortic stenosis. * No aortic regurgitation. Mitral Valve * Normal mitral valve structure and function. * No mitral regurgitation. * No mitral stenosis. Tricuspid Valve * Normal tricuspid valve structure and function. * Trace tricuspid regurgitation. * No evidence of pulmonary hypertension. RVSP was not well obtained due to poor TR jet and could be underestimated. Pulmonic Valve * Pulmonic valve not well visualized. Aorta * Normally sized aortic root. Pericardium * The pericardium appears normal. IVC * The IVC is not well evaluated. Pulmonary Artery * Pulmonary artery not well visualized. - VTE Documentation of Mechanical Device: Intermittent pneumatic compression device Consult Discharge Plan - Plan [facility]errals: [facility] [Primary Care Provider] -
[2017-03-12] MEDS ORDERED: 0.9 % Sodium Chloride 250 ML ONE (23:31)
[2017-03-13] MEDS: Ipratropium/Albuterol Neb 3 ML IH SCH ×4 (04:03→21:47)
[2017-03-13 04:50] LABS: Basophils # 0.1 K/mcL (0.0-0.2); Basophils % 0.5 %; Eosinophils # 0.2 K/mcL (0.0-0.6); Hematocrit 31.1 % (37.5-50.1); Hemoglobin 10.2 g/dL (12.9-16.9); Immature Granulocytes % 0.6 % (0-4); Lymphocytes % 8.7 %; Mean Corpuscular HGB Conc 32.8 g/dL (31.6-35.5); Mean Corpuscular Hemoglobin 29.1 pg (28.0-33.3); Mean Corpuscular Volume 88.9 fL (83.0-100.0); Mean Platelet Volume 10.6 fL (9.4-12.4); Monocytes # 1.1 K/mcL (0.0-1.3); Monocytes % 9.6 %; Nucleated Red Blood Cells 0.2 /100 WBC (0); Platelet Count 243 K/mcL (140-400); Red Cell Distribution Width 14.6 % (11.5-14.5); Segmented Neutrophils % 78.6 %
[2017-03-13 05:01] LABS: Hemoglobin A1C 5.9 %
[2017-03-13 05:10] LABS: BUN/Creatinine Ratio 19 (6-26); Blood Urea Nitrogen 16 mg/dL (8-26); Calcium 9.2 mg/dL (8.6-10.8); Carbon Dioxide 30 mEq/L (19-29); Chloride 104 mEq/L (98-109); Glucose 133 mg/dL (70-99); Osmolality,Calculated 293 (280-300); Potassium 3.8 mEq/L (3.5-4.5); Sodium 140 mEq/L (136-145); eGFR For African Americans > 60 (> 60); eGFR For Non-African Americans > 60 (> 60)
[2017-03-13 05:20] LABS: % Iron Saturation 16 % (20-55); Alanine Aminotransferase 12 Units/L (0-55); Albumin 2.3 g/dL (3.5-5.0); Albumin/Globulin Ratio 0.6 (1.1-2.2); Alkaline Phosphatase 69 Units/L (38-126); Aspartate Amino Transferase 15 Units/L (5-34); BUN/Creatinine Ratio 19 (6-26); Bilirubin,Total 1.3 mg/dL (0.2-1.2); Blood Urea Nitrogen 17 mg/dL (8-26); Calcium 9.2 mg/dL (8.6-10.8); Carbon Dioxide 30 mEq/L (19-29); Chloride 103 mEq/L (98-109); Cholesterol 105 mg/dL (< 200); Globulin 3.8 g/dL (2.4-3.5); Glucose 134 mg/dL (70-99); HDL Cholesterol 26 mg/dL (40-59); Iron 35 mcg/dL (65-175); LDL Cholesterol,Calculated 63 mg/dL (0-99); Magnesium 1.4 mg/dL (1.6-2.6); Osmolality,Calculated 292 (280-300); Potassium 3.6 mEq/L (3.5-4.5); Sodium 139 mEq/L (136-145); Total Protein 6.1 g/dL (6.0-8.3); Transferrin 161 mg/dL (174-364); Triglycerides 82 mg/dL (< 150); eGFR For African Americans > 60 (> 60); eGFR For Non-African Americans > 60 (> 60)
[2017-03-13] MEDS: Vancomycin 2,000 MG in D5% in Water 500 ML IVPB SCH ×2 (05:55→16:25)
[2017-03-13 06:05] LABS: Thyroid Stimulating Hormone 0.436 mcIU/mL (0.350-4.840)
[2017-03-13] MEDS: FLUoxetine 20 MG CAPSULE PO SCH (08:12)
[2017-03-13] MEDS: Cefepime HCl 2,000 MG in D5% in Water (Mini-Bag+) 100 ML IVPB SCH ×2 (08:15→15:39)
[2017-03-13] MEDS: GuaiFENesin/Pseudophedrine TABLET PO SCH ×2 (08:15→21:11)
[2017-03-13] MEDS: Aspirin Enteric Coated 81 MG Tablet PO SCH (08:15)
[2017-03-13] MEDS: Insulin LISPRO 300 UNITS/3 ML VIAL SQ SCH ×4 (08:23→22:22)
[2017-03-13] MEDS ORDERED: Magnesium Sulfate 2 GM in D5% in Water 100 ML IVPB ONE (08:32)
[2017-03-13] MEDS ORDERED: Aminoglycoside Consult 1 EACH MC ONE (08:34)
--- NOTE | 2017-03-13 10:39 | Cardiology Progress Note ---
Date of Encounter: 03/13/17 Time of Encounter: 10:20 Assessment and Plan (1) NSTEMI (non-ST elevated myocardial infarction) Current Visit: Yes Status: Acute Peak troponin 7.8 with downward trend in the setting of acute respiratory failure and acute blood loss anemia--HgB 7. Chest pain/discomfort likely secondary to demand ischemia secondary to acute anemia, recommend PRBC infusion with goal HgB 10.0. No heparin gtt due to acute blood loss anemia. Continue asa, statin, and betablocker. No indication for Cardiac rehab at this time. Patient is not a candidate for LHC or invasive evaluation due to acute anemia. Hx of negative nuclear stress in November 2015. TTE demonstrated preserved LVEF, 55% with normal wall motion. Recommend ischemic evaluation in the outpatient setting once okay by surgery and bleeding has resolved/stabilized. No further inpatient Cardiac testing warranted at this time. Cardiology will sign-off, will coordinate appt. in the outpatient setting. (2) Acute hypoxemic respiratory failure Current Visit: Yes Status: Acute SPO2 83% upon presentation, reports dyspnea now at baseline, pt. reports resolved with PRBC infusion. On high-flow oxygen--now being weaned off. Defer further mgmt to primary service. (3) Anemia Current Visit: Yes Status: Acute Acute blood loss anemia in the post-operative setting. Dyspnea improved, now near baseline. Goal HgB 10. Further mgmt to surgery/primary service. Qualifiers: Anemia type: unspecified type Qualified Code(s): D64.9 - Anemia, unspecified Discussion w patient/family: The assessment and plan as outlined above was discussed with the patient and/or family members who expressed understanding and agreement. All questions were answered. Thank you for involving us in the care of your patient. Please call with any questions. The patient will be discussed and reviewed with Dr. Carlson; Cardiology will sign- off, please call with questions. Subjective Principal diagnosis: Acute anemia Interval history: Seen and examined. Dyspnea, shortness of breath significantly improved today, reports improved with PRBC infusion. Denies chest pain/discomfort, syncope, dizziness, or any other CV symptoms. Objective Vital Signs, Last 4 Hours Temp Pulse Resp BP Pulse Ox 03/13/17 08:15 98.7 F 83 16 130/74 97 General: Conversant, No Apparent Distress, Other (obese) HEENT: Atraumatic, Normocephaly, Mucus Membranes Moist Neck: No JVD, Normal carotid pulses Cardiac: Reg Rate and Rhythm, Normal S1 and S2, No Murmur Lungs: Normal Breath Sounds, No Wheeze, Rales, Rhonchi Neuro: Alert and responsive, No focal deficits noted Abdomen: Soft, Other (large, obese) Skin: No rashes noted on visualized skin, Other (large hematoma left hip with MISAEL drain) Musculoskeletal: No Chest Wall Tenderness Extremities: No Clubbing, No Cyanosis, Other (mild, pretibial LE edema) Results 03/13/17 04:37 03/13/17 04:37 Lab Results 03/13/17 03/13/17 03/13/17 04:37 04:37 04:37 WBC 11.5 H Hgb 10.2 L D Hct 31.1 L Plt Count 243 Sodium 140 139 Potassium 3.8 3.6 Chloride 104 103 Carbon Dioxide 30 H 30 H BUN 16 17 Creatinine 0.86 0.88 Glucose 133 H 134 H Calcium 9.2 9.2 Magnesium 1.4 L Total Bilirubin 1.3 H AST 15 ALT 12 Alkaline Phosphatase 69 TSH 0.436 Active Medications Acetaminophen (Tylenol) 650 mg PO Q6HR PRN PRN Reason: Mild Pain (1-3) Stop: 09/10/17 14:23 Albuterol Sulfate (Proventil Neb) 2.5 mg IH Q2H PRN; Protocol PRN Reason: Shortness Of Breath/Wheezing Stop: 09/10/17 14:34 Last Admin: 03/12/17 06:40 Dose: 2.5 mg Albuterol/Ipratropium (Duoneb) 3 ml IH [id number] MEGAN Stop: 09/10/17 16:01 Last Admin: 03/13/17 04:03 Dose: 3 ml Aspirin (Aspirin Ec) 81 mg PO DAILY MEGAN Stop: 09/11/17 09:01 Last Admin: 03/13/17 08:15 Dose: 81 mg Atorvastatin Calcium (Lipitor) 40 mg PO HS MEGAN Stop: 09/10/17 21:01 Last Admin: 03/12/17 21:13 Dose: 40 mg Carvedilol (Coreg) 25 mg PO BID MEGAN PRN Reason: Protocol Stop: 09/10/17 21:01 Last Admin: 03/13/17 08:12 Dose: 25 mg Dextrose/Water (Dextrose 50% (Syg)) 25 ml IVP AD PRN PRN Reason: Hypoglycemia Stop: 09/10/17 15:01 Dextrose/Water (Dextrose 50% (Syg)) 25 ml IVP AD PRN PRN Reason: Hypoglycemia Stop: 09/10/17 19:09 Dicyclomine HCl (Bentyl) 20 mg PO BID PRN PRN Reason: ESOPHAGEAL SPASMS Stop: 09/10/17 20:55 Last Admin: 03/13/17 08:15 Dose: 20 mg Docusate Sodium (Colace) 100 mg PO BID PRN; Protocol PRN Reason: Constipation Stop: 09/10/17 14:32 Last Admin: 03/12/17 21:14 Dose: 100 mg Fluoxetine HCl (Prozac) 40 mg PO QAM MEGAN Stop: 09/11/17 09:01 Last Admin: 03/13/17 08:12 Dose: 40 mg Glucagon (Glucagen) 1 mg IM ONCE PRN PRN Reason: Hypoglycemia Stop: 09/10/17 15:01 Glucagon (Glucagen) 1 mg IM ONCE PRN PRN Reason: Hypoglycemia Stop: 09/10/17 19:09 Guaifenesin (Mucinex D) 1 each PO BID MEGAN PRN Reason: Protocol Stop: 09/10/17 21:01 Last Admin: 03/13/17 08:15 Dose: 1 each Sodium Chloride (0.9 % Sodium Chloride) 1,000 mls @ 0 mls/hr IVC .Q0M MEGAN PRN Reason: KVO Stop: 09/10/17 14:31 Cefepime HCl 2,000 mg/ (Dextrose) 100 mls @ 200 mls/hr IVPB Q8HR MEGAN Stop: 09/10/17 16:01 Last Admin: 03/13/17 08:15 Dose: 200 mls/hr Dextrose (Dextrose 5%) 1,000 mls @ 100 mls/hr IVC .Q10H PRN PRN Reason: HYPOGLYCEMIA Stop: 09/10/17 15:01 Sodium Chloride (0.9 % Sodium Chloride) 1,000 mls @ 100 mls/hr IVC .Q10H MEGAN Stop: 09/10/17 15:16 Last Admin: 03/11/17 16:26 Dose: 100 mls/hr Dextrose (Dextrose 5%) 1,000 mls @ 100 mls/hr IVC .Q10H PRN PRN Reason: HYPOGLYCEMIA Stop: 09/10/17 19:09 Vancomycin HCl 2,000 mg/ (Dextrose) 500 mls @ 250 mls/hr IVPB Q12H MEGAN Stop: 09/11/17 16:01 Last Admin: 03/13/17 05:55 Dose: 250 mls/hr Insulin Human Lispro (Humalog) 0 units SQ ACHS MEGAN PRN Reason: Protocol Stop: 09/10/17 21:01 Last Admin: 03/13/17 08:23 Dose: 4 units Naloxone HCl (Narcan) 0.4 mg IVP Q2MIN PRN PRN Reason: Opioid Reversal Stop: 09/10/17 14:23 Nitroglycerin (Nitroglycerin) 0.4 mg SL Q5MIN PRN PRN Reason: Chest Pain Stop: 09/10/17 11:30 Ondansetron HCl (Zofran) 4 mg IVP Q8HR PRN PRN Reason: Nausea And Vomiting Stop: 09/10/17 14:23 Oxycodone/Acetaminophen (Percocet 10/325) 1 each PO Q4HR PRN PRN Reason: Pain Stop: 09/11/17 10:49 Last Admin: 03/12/17 21:14 Dose: 1 each - Imaging and Cardiology Stress Test: report reviewed Echo: report reviewed Other Results: 12 hour tele: avg HR=80 SR. No signficant event noted. - EKG Interpretation EKG results cardiology: personally reviewed - VTE Documentation of Mechanical Device: Intermittent pneumatic compression device Consult Discharge Plan - Plan [facility] Provider[facility] - 03/24/17 12:15 pm
[2017-03-13] MEDS: *HR* OxyCODONE/APAP 10/325 TABLET PO PRN (15:11)
[2017-03-13] MEDS: Furosemide 20 MG TABLET PO SCH (15:37)
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
[2017-03-13 19:24] LABS: Hematocrit 30.9 % (37.5-50.1); Hemoglobin 10.2 g/dL (12.9-16.9)
--- NOTE | 2017-03-13 21:45 | Electrocardiograph Report ---
[place] [id number] Test Date: 2017-03-11 Pat Name: Isaac Weber Department: 104 Room: 2N04 Gender: M Inspector [employer]: [facility] : 1950 Requested By: Joe Nunez Order Number: [id number] Reading MD: Josef Christy MD Measurements Intervals [place] Rate: 92 P: 31 AL: 125 QRS: 31 QRSD: 81 T: -12 QT: 327 QTc: 377 Interpretive Statements SINUS RHYTHM Electronically Signed On 03-13-2017 21:43:27 EDT by Josef Christy MD
--- NOTE | 2017-03-13 21:46 | Electrocardiograph Report ---
[place] [id number] Test Date: 2017-03-11 Pat Name: Isaac Weber Department: 104 Room: 2N04 Gender: M Health Specialist: [facility] : 1950 Requested By: Jennifer Nolasco Order Number: [id number] Reading MD: Josef Christy MD Measurements Intervals [place] Rate: 88 P: 30 KS: 164 QRS: 35 QRSD: 91 T: -61 QT: 340 QTc: 386 Interpretive Statements SINUS RHYTHM BASELINE ARTIFACT Electronically Signed On 03-13-2017 21:44:46 EDT by Josef Christy MD
[2017-03-13] MEDS ORDERED: *HR* LORazepam 2 MG/ML VIAL IVP ONE (22:27)
[2017-03-13] MEDS ORDERED: *HR* LORazepam 2 MG/ML VIAL ONE (22:50)
[2017-03-14] MEDS: Cefepime HCl 2,000 MG in D5% in Water (Mini-Bag+) 100 ML IVPB SCH ×2 (00:25→10:49)
[2017-03-14] MEDS: Vancomycin 2,000 MG in D5% in Water 500 ML IVPB SCH (04:28)
[2017-03-14] MEDS: Ipratropium/Albuterol Neb 3 ML IH SCH ×4 (04:31→23:02)
[2017-03-14 06:21] LABS: Basophils # 0.1 K/mcL (0.0-0.2); Basophils % 0.4 %; Eosinophils # 0.1 K/mcL (0.0-0.6); Eosinophils % 0.9 %; Hematocrit 30.8 % (37.5-50.1); Hemoglobin 9.9 g/dL (12.9-16.9); Immature Granulocytes % 0.7 % (0-4); Lymphocytes # 0.9 K/mcL (0.6-4.6); Lymphocytes % 6.6 %; Mean Corpuscular HGB Conc 32.1 g/dL (31.6-35.5); Mean Corpuscular Hemoglobin 28.8 pg (28.0-33.3); Mean Corpuscular Volume 89.5 fL (83.0-100.0); Mean Platelet Volume 10.7 fL (9.4-12.4); Monocytes # 1.2 K/mcL (0.0-1.3); Monocytes % 8.5 %; Neutrophils # 11.4 K/mcL (1.6-8.9); Platelet Count 293 K/mcL (140-400); Red Blood Count 3.44 M/mcL (4.19-5.50); Red Cell Distribution Width 14.6 % (11.5-14.5); Segmented Neutrophils % 82.9 %
[2017-03-14 07:50] LABS: Alanine Aminotransferase 15 Units/L (0-55); Albumin 2.8 g/dL (3.5-5.0); Albumin/Globulin Ratio 0.9 (1.1-2.2); Alkaline Phosphatase 54 Units/L (38-126); Aspartate Amino Transferase 25 Units/L (5-34); BUN/Creatinine Ratio 20 (6-26); Bilirubin,Total 0.7 mg/dL (0.2-1.2); Blood Urea Nitrogen 17 mg/dL (8-26); Calcium 8.8 mg/dL (8.6-10.8); Carbon Dioxide 20 mEq/L (19-29); Chloride 106 mEq/L (98-109); Globulin 3.2 g/dL (2.4-3.5); Glucose 123 mg/dL (70-99); Magnesium 1.5 mg/dL (1.6-2.6); Osmolality,Calculated 291 (280-300); Potassium 4.1 mEq/L (3.5-4.5); Sodium 139 mEq/L (136-145); eGFR For African Americans > 60 (> 60); eGFR For Non-African Americans > 60 (> 60)
[2017-03-14] MEDS: *HR* OxyCODONE/APAP 10/325 TABLET PO PRN ×3 (08:29→18:42)
[2017-03-14] MEDS: GuaiFENesin/Pseudophedrine TABLET PO SCH ×2 (08:29→20:08)
[2017-03-14] MEDS: FLUoxetine 20 MG CAPSULE PO SCH (08:30)
[2017-03-14] MEDS: Aspirin Enteric Coated 81 MG Tablet PO SCH (08:31)
[2017-03-14] MEDS: Furosemide 20 MG TABLET PO SCH ×2 (08:32→18:42)
[2017-03-14] MEDS: Insulin LISPRO 300 UNITS/3 ML VIAL SQ SCH ×4 (08:38→20:06)
[2017-03-14] MEDS ORDERED: Magnesium Sulfate 2 GM in D5% in Water 100 ML IVPB ONE (10:14)
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
[2017-03-15] MEDS: *HR* OxyCODONE/APAP 10/325 TABLET PO PRN ×2 (03:50→20:39)
[2017-03-15] MEDS: Ipratropium/Albuterol Neb 3 ML IH SCH ×4 (04:48→22:26)
[2017-03-15 07:39] LABS: Alanine Aminotransferase 15 Units/L (0-55); Albumin 2.3 g/dL (3.5-5.0); Albumin/Globulin Ratio 0.7 (1.1-2.2); Alkaline Phosphatase 63 Units/L (38-126); Aspartate Amino Transferase 22 Units/L (5-34); BUN/Creatinine Ratio 16 (6-26); Bilirubin,Total 0.7 mg/dL (0.2-1.2); Blood Urea Nitrogen 13 mg/dL (8-26); Calcium 8.8 mg/dL (8.6-10.8); Carbon Dioxide 22 mEq/L (19-29); Chloride 106 mEq/L (98-109); Globulin 3.5 g/dL (2.4-3.5); Glucose 115 mg/dL (70-99); Magnesium 1.9 mg/dL (1.6-2.6); Osmolality,Calculated 289 (280-300); Potassium 4.3 mEq/L (3.5-4.5); Total Protein 5.8 g/dL (6.0-8.3); eGFR For African Americans > 60 (> 60); eGFR For Non-African Americans > 60 (> 60)
[2017-03-15 07:42] LABS: Sodium 139 mEq/L (136-145)
[2017-03-15 07:50] LABS: Basophils # 0.1 K/mcL (0.0-0.2); Basophils % 0.5 %; Eosinophils # 0.3 K/mcL (0.0-0.6); Eosinophils % 2.6 %; Hematocrit 30.3 % (37.5-50.1); Immature Granulocytes % 0.9 % (0-4); Lymphocytes # 1.1 K/mcL (0.6-4.6); Lymphocytes % 9.7 %; Mean Corpuscular Hemoglobin 29.2 pg (28.0-33.3); Mean Corpuscular Volume 88.6 fL (83.0-100.0); Mean Platelet Volume 11.2 fL (9.4-12.4); Monocytes % 9.1 %; Neutrophils # 8.7 K/mcL (1.6-8.9); Nucleated Red Blood Cells 0.3 /100 WBC (0); Platelet Count 258 K/mcL (140-400); Red Blood Count 3.42 M/mcL (4.19-5.50); Red Cell Distribution Width 14.6 % (11.5-14.5); Segmented Neutrophils % 77.2 %
[2017-03-15] MEDS: Aspirin Enteric Coated 81 MG Tablet PO SCH (08:26)
[2017-03-15] MEDS: Furosemide 20 MG TABLET PO SCH ×2 (08:26→16:28)
[2017-03-15] MEDS: GuaiFENesin/Pseudophedrine TABLET PO SCH ×2 (08:26→20:39)
[2017-03-15] MEDS: FLUoxetine 20 MG CAPSULE PO SCH (08:26)
[2017-03-15] MEDS: Insulin LISPRO 300 UNITS/3 ML VIAL SQ SCH ×4 (08:30→20:40)
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
[2017-03-15] MEDS ORDERED: Levofloxacin 750 MG/150 ML 750 MG/150 ML BAG IVPB SCH (15:00)
[2017-03-15] MEDS ORDERED: ALPRAZolam 0.25 MG TABLET PO ONE (20:21)
[2017-03-15] MEDS ORDERED: Furosemide 40 MG/4 ML VIAL ONE (23:36)
[2017-03-16 03:31] LABS: Basophils # 0.1 K/mcL (0.0-0.2); Basophils % 0.4 %; Eosinophils # 0.2 K/mcL (0.0-0.6); Eosinophils % 1.5 %; Hematocrit 31.7 % (37.5-50.1); Hemoglobin 10.2 g/dL (12.9-16.9); Immature Granulocytes % 0.5 % (0-4); Lymphocytes % 8.1 %; Mean Corpuscular HGB Conc 32.2 g/dL (31.6-35.5); Mean Corpuscular Hemoglobin 28.9 pg (28.0-33.3); Mean Corpuscular Volume 89.8 fL (83.0-100.0); Mean Platelet Volume 10.1 fL (9.4-12.4); Monocytes # 0.9 K/mcL (0.0-1.3); Monocytes % 7.9 %; Neutrophils # 9.6 K/mcL (1.6-8.9); Platelet Count 315 K/mcL (140-400); Red Blood Count 3.53 M/mcL (4.19-5.50); Red Cell Distribution Width 14.2 % (11.5-14.5); Segmented Neutrophils % 81.6 %
[2017-03-16 03:45] LABS: Alanine Aminotransferase 20 Units/L (0-55); Albumin 2.4 g/dL (3.5-5.0); Albumin/Globulin Ratio 0.7 (1.1-2.2); Alkaline Phosphatase 68 Units/L (38-126); Aspartate Amino Transferase 22 Units/L (5-34); BUN/Creatinine Ratio 12 (6-26); Bilirubin,Total 0.9 mg/dL (0.2-1.2); Blood Urea Nitrogen 10 mg/dL (8-26); Calcium 9.1 mg/dL (8.6-10.8); Carbon Dioxide 28 mEq/L (19-29); Chloride 104 mEq/L (98-109); Globulin 3.6 g/dL (2.4-3.5); Glucose 144 mg/dL (70-99); Osmolality,Calculated 290 (280-300); Potassium 3.7 mEq/L (3.5-4.5); Sodium 139 mEq/L (136-145); eGFR For African Americans > 60 (> 60); eGFR For Non-African Americans > 60 (> 60)
[2017-03-16] MEDS: Ipratropium/Albuterol Neb 3 ML IH SCH ×5 (04:11→22:48)
[2017-03-16] MEDS: Insulin LISPRO 300 UNITS/3 ML VIAL SQ SCH ×4 (08:00→22:31)
[2017-03-16] MEDS: GuaiFENesin/Pseudophedrine TABLET PO SCH ×2 (08:14→20:30)
[2017-03-16] MEDS: Aspirin Enteric Coated 81 MG Tablet PO SCH (08:14)
[2017-03-16] MEDS: FLUoxetine 20 MG CAPSULE PO SCH (08:14)
[2017-03-16] MEDS: Furosemide 20 MG TABLET PO SCH (08:14)
[2017-03-16] MEDS: Doxycycline 100 MG in 0.9 % Sodium Chloride Mini Bag 100 ML IVPB SCH ×2 (09:49→18:15)
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
[2017-03-16] MEDS ORDERED: Magnesium Sulfate 2 GM in D5% in Water 100 ML IVPB ONE (13:43)
--- NOTE | 2017-03-16 14:03 | Cardiology Progress Note ---
Date of Encounter: 03/16/17 Time of Encounter: 12:00 Assessment and Plan (1) Arrhythmia Current Visit: Yes Status: Acute Per cardiology: -Arrhythmia noted on telemetry. Difficult to determine if ventricular tachycardia versus torsades. -Patient was reported unconscious during episode and spontaneously converted. -Patient reports seeing red and hearing voices. -ON beta margaret. -Of note, was started on levaquin. QTc prior to levaquin noted to be 377, QTc this am noted to be 471. Levaquin has been stopped. -Of note, patient is also on prozac which can cause QT prolongation. -No further episodes of arrhythmia noted. -Of note, patient has elevated troponin this admission during acute blood loss. Previously seen by cardiology with recommendations for outpatient ischemic evaluation. Patient denies chest pain. -Monitor electrolytes -Continue telemetry. -Will continue to monitor. Qualifiers: Arrhythmia type: unspecified cardiac arrhythmia Qualified Code(s): I49.9 - Cardiac arrhythmia, unspecified Discussion w patient/family: The assessment and plan as outlined above was discussed with the patient and/or family members who expressed understanding and agreement. All questions were answered. Thank you for involving us in the care of your patient. Please call with any questions. Discussed and reviewed with . Subjective Principal diagnosis: Acute anemia Interval history: Overnight, patient developed suspect ventricular tachycardia. According to reports, patient came out of rhythm on his own. Patient states during episode, he saw "red and felt like i was out of it." Patient also states he could hear voices, but was unable to understand them. Currently, patient denies chest pain or worsening shortness of breath. Objective Vital Signs, Last 4 Hours Temp Pulse Resp BP Pulse Ox 03/16/17 11:16 67 03/16/17 11:00 97.5 F L 70 16 133/90 99 General: Conversant, No Apparent Distress HEENT: Atraumatic, Normocephaly, Mucus Membranes Moist Neck: No JVD, Normal carotid pulses Cardiac: Reg Rate and Rhythm, Normal S1 and S2, No Murmur Lungs: Other (Lung sounds diminished. ) Neuro: Alert and responsive, No focal deficits noted Abdomen: Soft, Non-Tender Skin: No rashes noted on visualized skin Musculoskeletal: No Chest Wall Tenderness Extremities: No Clubbing, No Cyanosis, No Edema, Normal Pulses Results 03/16/17 03:22 03/16/17 03:22 Lab Results Impressions Chest X-Ray 03/15/17 14:31 IMPRESSION: Interval development of pulmonary edema with small bilateral pleural effusions. There is slightly more focal consolidation in the left upper lung which may be related to asymmetric edema versus superimposed pneumonia. D/ / Maritza Hurley MD / Maritza Hurley MD Interpreting Provider: Maritza Hurley MD Active Medications Acetaminophen (Tylenol) 650 mg PO Q6HR PRN PRN Reason: Mild Pain (1-3) Stop: 09/10/17 14:23 Albuterol Sulfate (Proventil Neb) 2.5 mg IH Q2H PRN; Protocol PRN Reason: Shortness Of Breath/Wheezing Stop: 09/10/17 14:34 Last Admin: 03/12/17 06:40 Dose: 2.5 mg Albuterol/Ipratropium (Duoneb) 3 ml IH [id number] MEGAN Stop: 09/10/17 16:01 Last Admin: 03/16/17 10:28 Dose: Not Given Aspirin (Aspirin Ec) 81 mg PO DAILY MEGAN Stop: 09/11/17 09:01 Last Admin: 03/16/17 08:14 Dose: 81 mg Atorvastatin Calcium (Lipitor) 40 mg PO HS MEGAN Stop: 09/10/17 21:01 Last Admin: 03/15/17 20:39 Dose: 40 mg Carvedilol (Coreg) 25 mg PO BID MEGAN PRN Reason: Protocol Stop: 09/10/17 21:01 Last Admin: 03/16/17 08:15 Dose: 25 mg Dextrose/Water (Dextrose 50% (Syg)) 25 ml IVP AD PRN PRN Reason: Hypoglycemia Stop: 09/10/17 19:09 Dicyclomine HCl (Bentyl) 20 mg PO TIDAC MEGAN Stop: 09/12/17 15:16 Last Admin: 03/16/17 11:04 Dose: 20 mg Docusate Sodium (Colace) 100 mg PO BID PRN; Protocol PRN Reason: Constipation Stop: 09/10/17 14:32 Last Admin: 03/15/17 20:43 Dose: 100 mg Fluoxetine HCl (Prozac) 40 mg PO QAM MEGAN Stop: 09/11/17 09:01 Last Admin: 03/16/17 08:14 Dose: 40 mg Furosemide (Lasix) 20 mg PO BIDDIURETIC MEGAN Stop: 09/12/17 17:01 Last Admin: 03/16/17 08:14 Dose: 20 mg Glucagon (Glucagen) 1 mg IM ONCE PRN PRN Reason: Hypoglycemia Stop: 09/10/17 19:09 Glucose (Gluctose) 15 gm PO ONCE PRN PRN Reason: Hypoglycemia Stop: 09/10/17 19:09 Glucose (Gluctose) 30 gm PO ONCE PRN PRN Reason: Hypoglycemia Stop: 09/10/17 19:09 Guaifenesin (Mucinex D) 1 each PO BID MEGAN PRN Reason: Protocol Stop: 09/10/17 21:01 Last Admin: 03/16/17 08:14 Dose: 1 each Sodium Chloride (0.9 % Sodium Chloride) 1,000 mls @ 0 mls/hr IVC .Q0M MEGAN PRN Reason: KVO Stop: 09/10/17 14:31 Dextrose (Dextrose 5%) 1,000 mls @ 100 mls/hr IVC .Q10H PRN PRN Reason: HYPOGLYCEMIA Stop: 09/10/17 19:09 Ceftriaxone Sodium 1,000 mg/ (Dextrose) 100 mls @ 200 mls/hr IVPB DAILY [facility] Stop: 09/15/17 10:01 Last Infusion: 03/16/17 10:28 Dose: Infused Doxycycline Hyclate 100 mg/ (Sodium Chloride) 100 mls @ 100 mls/hr IVPB Q12HR [facility] Stop: 09/15/17 10:01 Last Admin: 03/16/17 09:49 Dose: 100 mls/hr Magnesium Sulfate 2 gm/ (Dextrose) 104 mls @ 100 mls/hr IVPB ONCE ONE Stop: 03/16/17 14:45 Insulin Human Lispro (Humalog) 0 units SQ ACHS MEGAN PRN Reason: Protocol Stop: 09/10/17 21:01 Last Admin: 03/16/17 11:03 Dose: 2 units Naloxone HCl (Narcan) 0.4 mg IVP Q2MIN PRN PRN Reason: Opioid Reversal Stop: 09/10/17 14:23 Nitroglycerin (Nitroglycerin) 0.4 mg SL Q5MIN PRN PRN Reason: Chest Pain Stop: 09/10/17 11:30 Ondansetron HCl (Zofran) 4 mg IVP Q8HR PRN PRN Reason: Nausea And Vomiting Stop: 09/10/17 14:23 Oxycodone/Acetaminophen (Percocet 10/325) 1 each PO Q4HR PRN PRN Reason: Pain Stop: 09/11/17 10:49 Last Admin: 03/15/17 20:39 Dose: 1 each Potassium Chloride (Potassium Chloride) 10 meq PO DAILY MEGAN Stop: 09/12/17 17:01 Last Admin: 03/16/17 08:14 Dose: 10 meq Laboratory Tests 03/11/17 03/11/17 03/11/17 11:29 18:48 20:18 WBC Hgb Potassium Creatinine Magnesium Troponin I 7.50 H* 7.85 H* 7.50 H* 03/12/17 03/12/17 03/13/17 02:59 02:59 04:37 WBC Hgb 7.9 L 10.2 L D Potassium Creatinine Magnesium Troponin I 5.58 H* 03/14/17 03/15/17 03/16/17 05:27 07:03 03:22 WBC 11.8 H Hgb 9.9 L 10.0 L 10.2 L Potassium Creatinine Magnesium Troponin I 03/16/17 03/16/17 03:22 03:22 WBC Hgb Potassium 3.7 Creatinine 0.81 Magnesium 1.6 Troponin I - Imaging and Cardiology Chest Xray: report reviewed Echo: report reviewed - EKG Interpretation EKG results cardiology: personally reviewed (ECG today with Sr, HR 74. Qt 443, Qtc 471.), other (Telemetry reviewed with average HR previous 12 hours noted to be 75, sinus rhythm.) - VTE Documentation of Mechanical Device: Intermittent pneumatic compression device Consult Discharge Plan - Plan [facility]errals: [facility] Provider[facility] - 03/24/17 12:15 pm
[2017-03-16] MEDS: Gabapentin 300 MG CAPSULE PO SCH ×2 (16:08→20:30)
[2017-03-16] MEDS: Furosemide 40 MG/4 ML VIAL IVP SCH (18:15)
[2017-03-16] MEDS ORDERED: Perflutren Lipid Microsphere 1.3 ML in 0.9 % Sodium Chloride 8.7 ML IVP ONE (22:00)
[2017-03-17] MEDS: Ipratropium/Albuterol Neb 3 ML IH SCH ×3 (04:47→16:40)
[2017-03-17 04:56] LABS: Basophils # 0.1 K/mcL (0.0-0.2); Basophils % 0.6 %; Eosinophils # 0.3 K/mcL (0.0-0.6); Eosinophils % 2.9 %; Hemoglobin 10.2 g/dL (12.9-16.9); Immature Granulocytes % 0.5 % (0-4); Lymphocytes # 1.2 K/mcL (0.6-4.6); Lymphocytes % 10.9 %; Mean Corpuscular HGB Conc 31.9 g/dL (31.6-35.5); Mean Corpuscular Volume 90.9 fL (83.0-100.0); Mean Platelet Volume 10.5 fL (9.4-12.4); Monocytes % 9.6 %; Neutrophils # 8.2 K/mcL (1.6-8.9); Platelet Count 299 K/mcL (140-400); Red Blood Count 3.52 M/mcL (4.19-5.50); Red Cell Distribution Width 14.3 % (11.5-14.5); Segmented Neutrophils % 75.5 %
[2017-03-17 05:29] LABS: Alanine Aminotransferase 23 Units/L (0-55); Albumin 2.4 g/dL (3.5-5.0); Albumin/Globulin Ratio 0.7 (1.1-2.2); Alkaline Phosphatase 66 Units/L (38-126); Aspartate Amino Transferase 29 Units/L (5-34); BUN/Creatinine Ratio 12 (6-26); Bilirubin,Total 0.6 mg/dL (0.2-1.2); Blood Urea Nitrogen 9 mg/dL (8-26); Carbon Dioxide 29 mEq/L (19-29); Chloride 104 mEq/L (98-109); Globulin 3.3 g/dL (2.4-3.5); Glucose 128 mg/dL (70-99); Magnesium 1.8 mg/dL (1.6-2.6); Osmolality,Calculated 288 (280-300); Potassium 3.7 mEq/L (3.5-4.5); Sodium 139 mEq/L (136-145); Total Protein 5.7 g/dL (6.0-8.3); eGFR For African Americans > 60 (> 60); eGFR For Non-African Americans > 60 (> 60)
[2017-03-17] MEDS: Doxycycline 100 MG in 0.9 % Sodium Chloride Mini Bag 100 ML IVPB SCH (06:18)
[2017-03-17] MEDS: FLUoxetine 20 MG CAPSULE PO SCH (08:31)
[2017-03-17] MEDS: Furosemide 40 MG/4 ML VIAL IVP SCH (08:31)
[2017-03-17] MEDS: GuaiFENesin/Pseudophedrine TABLET PO SCH (08:32)
[2017-03-17] MEDS: Gabapentin 300 MG CAPSULE PO SCH ×2 (08:32→15:56)
[2017-03-17] MEDS: Aspirin Enteric Coated 81 MG Tablet PO SCH (08:32)
[2017-03-17] MEDS: Insulin LISPRO 300 UNITS/3 ML VIAL SQ SCH ×2 (08:43→12:48)
[2017-03-17] MEDS: *HR* OxyCODONE/APAP 10/325 TABLET PO PRN (09:07)
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
[2017-03-17] MEDS ORDERED: Magnesium Sulfate 2 GM in D5% in Water 100 ML IVPB ONE (11:58)
--- NOTE | 2017-03-17 12:11 | Cardiology Progress Note ---
Date of Encounter: 03/17/17 Time of Encounter: 10:00 Assessment and Plan (1) Arrhythmia Current Visit: Yes Status: Acute Per cardiology: -Arrhythmia noted on telemetry. Difficult to determine if ventricular tachycardia versus torsades versus noise due to patient shaking during episode. -No significant events overnight. -Limited echo with LVEF 55%, no wall motion abnormalities. -ON beta margaret. -Of note, was started on levaquin. QTc prior to levaquin noted to be 377, QTc this am noted to be 471. Levaquin has been stopped. -Of note, patient is also on prozac which can cause QT prolongation. -Of note, patient has elevated troponin this admission during acute blood loss. Previously seen by cardiology with recommendations for outpatient ischemic evaluation. Patient denies chest pain. -Patient also with bleeding and anemia this admission post op. -Per discussion with , patient is not a candidate for futher invasive cardiac procedures due to anemia with bleeding this admission and potential need for antiplatelets. Cardiology will sign off and will closely follow in outpatient setting. Follow up is being set by [facility]. Qualifiers: Arrhythmia type: unspecified cardiac arrhythmia Qualified Code(s): I49.9 - Cardiac arrhythmia, unspecified Discussion w patient/family: The assessment and plan as outlined above was discussed with the patient who expressed understanding and agreement. All questions were answered. Thank you for involving us in the care of your patient. Please call with any questions. Discussed and reviewed with . Subjective Principal diagnosis: Acute anemia Interval history: Overnight, patient developed suspect ventricular tachycardia. According to reports, patient came out of rhythm on his own. Patient states during episode, he saw "red and felt like i was out of it." Patient also states he could hear voices, but was unable to understand them. Currently, patient denies chest pain or worsening shortness of breath. Objective Vital Signs, Last 4 Hours Temp Pulse Resp BP Pulse Ox 03/17/17 11:12 98.0 F 65 17 129/82 03/17/17 10:48 17 99 General: Conversant, No Apparent Distress HEENT: Atraumatic, Normocephaly, Mucus Membranes Moist Neck: No JVD, Normal carotid pulses Cardiac: Reg Rate and Rhythm, Normal S1 and S2, No Murmur Lungs: Normal Breath Sounds, No Wheeze, Rales, Rhonchi Neuro: Alert and responsive, No focal deficits noted Abdomen: Soft, Non-Tender Skin: No rashes noted on visualized skin Musculoskeletal: No Chest Wall Tenderness, Other (Left sided MISAEL with sanguinous drainage. ) Extremities: No Clubbing, No Cyanosis, No Edema, Normal Pulses Results 03/17/17 04:27 03/17/17 04:27 Lab Results Impressions Echocardiogram Limited Views 03/16/17 16:25 Impressions: LVEF 55%. Normal LV chamber size, wall thickness and function. Atypical septal motion consistent with bundle branch block. Limited study. See prior report dated 03/12/2017 for further details. Left Ventricular Wall Motion: Rest Echo Findings All wall segments showed normal motion. Findings: Study Quality * Technically adequate exam. ECG Findings * Sinus rhythm with BBB. Left Ventricle * LVEF 55%. * Normal LV chamber size, wall thickness and function. * Atypical septal motion consistent with bundle branch block. Active Medications Acetaminophen (Tylenol) 650 mg PO Q6HR PRN PRN Reason: Mild Pain (1-3) Stop: 09/10/17 14:23 Albuterol Sulfate (Proventil Neb) 2.5 mg IH Q2H PRN; Protocol PRN Reason: Shortness Of Breath/Wheezing Stop: 09/10/17 14:34 Last Admin: 03/12/17 06:40 Dose: 2.5 mg Albuterol/Ipratropium (Duoneb) 3 ml IH [id number] MEGAN Stop: 09/10/17 16:01 Last Admin: 03/17/17 10:47 Dose: 3 ml Aspirin (Aspirin Ec) 81 mg PO DAILY MEGAN Stop: 09/11/17 09:01 Last Admin: 03/17/17 08:32 Dose: 81 mg Atorvastatin Calcium (Lipitor) 40 mg PO HS MEGAN Stop: 09/10/17 21:01 Last Admin: 03/16/17 20:30 Dose: 40 mg Carvedilol (Coreg) 25 mg PO BID MEGAN PRN Reason: Protocol Stop: 09/10/17 21:01 Last Admin: 03/17/17 08:32 Dose: 25 mg Dextrose/Water (Dextrose 50% (Syg)) 25 ml IVP AD PRN PRN Reason: Hypoglycemia Stop: 09/10/17 19:09 Dicyclomine HCl (Bentyl) 20 mg PO TIDAC [facility] Stop: 09/12/17 15:16 Last Admin: 03/17/17 08:32 Dose: 20 mg Docusate Sodium (Colace) 100 mg PO BID PRN; Protocol PRN Reason: Constipation Stop: 09/10/17 14:32 Last Admin: 03/15/17 20:43 Dose: 100 mg Fluoxetine HCl (Prozac) 40 mg PO QAM MEGAN Stop: 09/11/17 09:01 Last Admin: 03/17/17 08:31 Dose: 40 mg Furosemide (Lasix) 40 mg IVP BIDDIURETIC MEGAN Stop: 09/15/17 17:01 Last Admin: 03/17/17 08:31 Dose: 40 mg Gabapentin (Neurontin) 600 mg PO TID MEGAN Stop: 09/15/17 15:46 Last Admin: 03/17/17 08:32 Dose: 600 mg Glucagon (Glucagen) 1 mg IM ONCE PRN PRN Reason: Hypoglycemia Stop: 09/10/17 19:09 Glucose (Gluctose) 15 gm PO ONCE PRN PRN Reason: Hypoglycemia Stop: 09/10/17 19:09 Glucose (Gluctose) 30 gm PO ONCE PRN PRN Reason: Hypoglycemia Stop: 09/10/17 19:09 Guaifenesin (Mucinex D) 1 each PO BID MEGAN PRN Reason: Protocol Stop: 09/10/17 21:01 Last Admin: 03/17/17 08:32 Dose: 1 each Sodium Chloride (0.9 % Sodium Chloride) 1,000 mls @ 0 mls/hr IVC .Q0M MEGAN PRN Reason: KVO Stop: 09/10/17 14:31 Dextrose (Dextrose 5%) 1,000 mls @ 100 mls/hr IVC .Q10H PRN PRN Reason: HYPOGLYCEMIA Stop: 09/10/17 19:09 Ceftriaxone Sodium 1,000 mg/ (Dextrose) 100 mls @ 200 mls/hr IVPB DAILY MEGAN Stop: 09/15/17 10:01 Last Admin: 03/17/17 08:33 Dose: 100 mls/hr Doxycycline Hyclate 100 mg/ (Sodium Chloride) 100 mls @ 100 mls/hr IVPB Q12HR MEGAN Stop: 09/15/17 10:01 Last Infusion: 03/17/17 07:15 Dose: Infused Magnesium Sulfate 2 gm/ (Dextrose) 104 mls @ 100 mls/hr IVPB ONCE ONE Stop: 03/17/17 13:00 Insulin Human Lispro (Humalog) 0 units SQ ACHS MEGAN PRN Reason: Protocol Stop: 09/10/17 21:01 Last Admin: 03/17/17 08:43 Dose: Not Given Naloxone HCl (Narcan) 0.4 mg IVP Q2MIN PRN PRN Reason: Opioid Reversal Stop: 09/10/17 14:23 Nitroglycerin (Nitroglycerin) 0.4 mg SL Q5MIN PRN PRN Reason: Chest Pain Stop: 09/10/17 11:30 Ondansetron HCl (Zofran) 4 mg IVP Q8HR PRN PRN Reason: Nausea And Vomiting Stop: 09/10/17 14:23 Oxycodone/Acetaminophen (Percocet 10/325) 1 each PO Q4HR PRN PRN Reason: Pain Stop: 09/11/17 10:49 Last Admin: 03/17/17 09:07 Dose: 1 each Potassium Chloride (Potassium Chloride) 10 meq PO DAILY MEGAN Stop: 09/12/17 17:01 Last Admin: 03/17/17 08:32 Dose: 10 meq Laboratory Tests 03/17/17 03/17/17 04:27 04:27 Hgb 10.2 L Creatinine 0.78 - Imaging and Cardiology Chest Xray: report reviewed Echo: report reviewed - EKG Interpretation EKG results cardiology: other (Telemetry reviewed with average HR 70, SR. PACS noted. No significant arrythmias noted.) - VTE Documentation of Mechanical Device: Intermittent pneumatic compression device Consult Discharge Plan - Plan [facility]errals: [facility]Primary Care Provider[facility] - 03/24/17 12:15 pm
[2017-03-17 15:41] VITALS: BP 132/74
--- NOTE | 2017-03-17 15:48 | Discharge Summary ---
<Evelyn Anaya - Last Filed: 03/17/17 15:39> Date of Encounter: 03/17/17 Time of Encounter: 15:39 - Discharge Diagnosis (1) Hip hematoma, left Priority: Primary Status: Acute Qualifiers: Encounter type: initial encounter Qualified Code(s): S70.02XA - Contusion of left hip, initial encounter (2) NSTEMI (non-ST elevated myocardial infarction) Priority: Primary Status: Acute (3) Acute on chronic respiratory failure with hypoxemia Priority: Primary Status: Acute (4) Hyperlipidemia Priority: Secondary Status: Chronic Qualifiers: Hyperlipidemia type: unspecified Qualified Code(s): E78.5 - Hyperlipidemia , unspecified (5) Acute blood loss as cause of postoperative anemia Priority: Primary Status: Acute (6) Diabetes Priority: Secondary Status: Chronic Qualifiers: Diabetes mellitus type: type 2 Diabetes mellitus complication status: with unspecified complications Diabetes mellitus bed bug exterminator insulin use: unspecified bed bug exterminator insulin use status Qualified Code(s): E11.8 - Type 2 diabetes mellitus with unspecified complications (7) Hypomagnesemia Priority: Primary Status: Resolved (8) Pneumonia Priority: Primary Status: Acute Qualifiers: Pneumonia type: due to unspecified organism Laterality: bilateral Lung location: lower lobe of lung Qualified Code(s): J18.9 - Pneumonia, unspecified organism (9) QT prolongation Priority: Primary Status: Acute - Discharge Medications Prescriptions: Cefdinir [Omnicef] 300 mg PO BID #6 capsule Doxycycline 100 mg PO BID #6 capsule Furosemide [Lasix] 40 mg PO BID #28 tab Magnesium Oxide [Magnesium] 400 mg PO BID #30 tablet Home Medications: Albuterol Sulfate [Albuterol Inhaler] 2 puff IH Q6HR PRN 12/03/15 [History] Aspirin Enteric Coated [Aspirin EC] 81 mg PO DAILY 12/03/15 [History] Atorvastatin [Lipitor] 10 mg PO HS 12/03/15 [History] FLUoxetine HCl [Prozac] 40 mg PO QAM 12/03/15 [History] Furosemide [Lasix] 20 mg PO BID 12/03/15 [History] Gabapentin [Neurontin] 900 mg PO TID 12/03/15 [History] Ipratropium [ATROVENT Inhaler] 2 puff IH QID PRN 12/03/15 [History] Multivitamin [One Daily Essential] 1 tab PO DAILY 12/03/15 [History] Nitroglycerin [Nitrostat] 0.4 mg SL AD PRN 12/03/15 [History] Potassium Chloride [K-Tab ER] 10 meq PO DAILY 12/03/15 [History] Trazodone HCl [TraZODone] 200 mg PO HS 12/03/15 [History] Calcium Citrate 200 mg PO DAILY 03/07/17 [History] Carvedilol [Coreg] 25 mg PO BID 03/07/17 [History] Dicyclomine [Bentyl] 20 mg PO BID PRN 03/07/17 [History] Isosorbide MONOnitrate (24 HR) [Imdur] 60 mg PO DAILY 03/07/17 [History] Metformin HCl [Glucophage] 1,000 mg PO BID 03/07/17 [History] Pantoprazole Sodium [Protonix] 40 mg PO DAILY 03/07/17 [History] Tamsulosin [Flomax] 0.4 mg PO DAILY 03/07/17 [History] Docusate [Colace] 100 mg PO BID PRN #30 03/08/17 [Rx] OxyCODONE/APAP 10/325 [Percocet 10/325 MG] 1 tab PO Q4HR PRN 03/12/17 [History] Cefdinir [Omnicef] 300 mg PO BID #6 capsule 03/17/17 [Rx] Doxycycline 100 mg PO BID #6 capsule 03/17/17 [Rx] Furosemide [Lasix] 40 mg PO BID #28 tab 03/17/17 [Rx] Magnesium Oxide [Magnesium] 400 mg PO BID #30 tablet 03/17/17 [Rx] Allergies/Adverse Reactions: 3 Allergy/AdvReac Type Severity Reaction Status Date / Time levofloxacin [From Levaquin] AdvReac Seizure Verified 03/16/17 20:21 Procedures/tests Complete & Pending: Procedures Performed prior 72 hours Category Date Time Status ECG 12 lead ECG [ECG] Routine Y 03/16/17 00:02 Completed EKG [ECG 12 lead ECG] [ECG] Routine Y 03/17/17 07:30 Ordered EKG [ECG 12 lead ECG] [ECG] Stat Y 03/16/17 09:29 Completed EV limited echo w enhance Routine Y 03/16/17 16:25 Completed Date of admission: 03/11/17 14:01 [facility] care physician: [facility] Consults: 03/11/17 14:30 Consult to Cardiology [CONS] Routine Comment: Consulting Provider: Sofia Painter Reason for Consult: NSTEMI Time Notified: 14:31 Call Completed: Yes 03/11/17 15:02 Consult to Surgery [CONS] Routine Consulting Provider: Jake Painter Surgical Reason for Consult: Left hip hematoma Time Notified: 15:04 Call Completed: Yes 03/14/17 14:22 Consult to Occupational Therapy [CONS] Routine Comment: Evaluate, develop and implement POC Reason for Consult: ble weakness Consult to Physical Therapy [CONS] Routine Comment: Evaluate, develop and implement POC Reason for Consult: ble edema 03/16/17 11:32 Consult to Cardiology [CONS] Routine Comment: Consulting Provider: Sofia Painter Reason for Consult: Vtach last night, prolonged Qtc = 471 this morning, a couple of beats of Vtach yesterday before starting Levoquin. Changed to Ceftrixone and doxy this morning. Time Notified: 08:55 Call Completed: No - Patient Status Disposition: Home, Self-Care Condition: Good Functional capacity at discharge: uses cane/walker Overall status at discharge: patient is progressing back to baseline - Discharge Instructions Instructions: Myocardial Infarction (DC), Pneumonia (DC) Follow Up With: [facility],PCP [Primary Care Provider] - 03/24/17 12:15 pm [facility] [Provider Group] Additional Instructions: - Follow-up with her primary care physician in 1 to 2 weeks. Also talk to primary care physician about need for CT chest scan in 3 months to recheck lymph node size. - Continue to have wound care help with dressing changes daily. - Follow up with cardiology in 1-2 weeks. - - Diet and Activity Activity: as per physical therapy, increase activity as tolerated Diet: diabetic diet Hospital course: Mr. Weber is a 66 year old male with a past medical history of hypertension, diabetes, high cholesterol, previous NV with stent, and recent I&D in February for hematoma from the left hip/lateral thigh with JVP drain placed going into his left abdomen presented to edema as a direct admit from the [facility] due to chest pain, shortness of breath, hypoxia, elevated troponins found to have a possible STEMI, acute anemia secondary to hematoma drainage, pneumonia, and CHF with preserved EF. CT of his chest, abdomen, and pelvis were performed which showed no pulmonary embolism, bilateral groundglass opacities throughout the lungs concern for atypical infection. Concerning the anemia with an initial hemoglobin of 7.9 with recent hematoma I&D and MISAEL drainage bloody, surgery was consulted and recommended continue MISAEL drainage and daily dressing changes and did not see evidence of active bleeding or infection on the CT scan. Patient was transferred to units of packed red blood cells at the beginning of his stay in and was able to maintain hemodynamically stable for the remainder of the hospital stay. Patient was initially put on BiPAP during admission and then weaned to high flow nasal cannula. Concerning the elevated troponin, Cardiology was consulted and believe the elevated troponins were most likely due to demand ischemia into the acute anemia but is a candidate for a left heart catheter but is unable to obtain a left heart catheter due to the anemia secondary to blood loss. TTE demonstrated preserved left ventricular ejection fraction of 55% with normal wall motion. Concerning patient's pneumonia, patient was put on Levaquin and within 2 days had an episode of V. tach in the loss of consciousness for about 1 minute but resumed normal sinus rhythm without medical intervention. An EKG showed prolonged QTC(= 477) after going back into normal sinus rhythm and patient was taken off Levaquin and put on ceftriaxone and doxycycline. Cardiology was reconsulted and due to episode of V. tach. Cardiology believed even more that this patient needed a left heart catheter and talked to surgery to see what the risk for rebleeding would be a stent was placed and put on dual therapy antiplatelet along with heparin flushes during the catheter. Dr. Carlson that he should not be a candidate for futher invasive cardiac procedures due to anemia with bleeding this admission and potential need for antiplatelets. Of note EKG on last day of hospital stay noted at QTC =446 which was trending down from previous QTC prolongation. Will have cardiology f/u outpatient. Concerning the patient's congestive heart failure, patient was initially placed on Lasix 20 mg by mouth twice a day but was switched to Lasix 40 mg IV twice a day and consult drastic improvement in ability to breathe as patient went from high flow nasal cannula 7 L to room air after 24 hours of increased Lasix treatment. Patient was sent home on 40 mg by mouth twice a day of Lasix. PT and occupational therapy recommended SNF but patient really wanted to go home and said that he would take care of him. So patient was discharged home with home health for wound care, physical and Occupational therapy. Patient was discharged home and instructed to follow with primary care physician in one to 2 weeks and to see cardiology in 1-2 weeks. Of note on the chest CT with mediastinal lymph nodes that the radiologist recommended follow-up CT of chest in 3 months to be followed up outpatient. - Time Spent with Patient Total time spent providing and/or coordinating discharge services: - Constitutional Vitals: Temp Pulse Resp BP Pulse Ox 98.0 F 65 17 129/82 98 03/17/17 11:12 03/17/17 11:12 03/17/17 11:12 03/17/17 11:12 03/17/17 11:50 General appearance: Present: mild distress (Ill-appearing), A&O X 3 Exam: Constitutional: Alert, in no acute distress, well nourished, well developed. Head: Normocephalic, atraumatic, normal contour and symmetric, no masses, lesions or scars Heart: Normal, regular rate and rhythm, no murmurs Lungs: Clear to auscultation with no wheezes, rales, or rhonchi Abdomen: tenderness on L flank decreased from prior exam, dressing clean and dry , MISAEL drain with bloody fluid, Soft, nondistended, nontender, and no masses palpable, bowel sounds present and normal, no guarding or rigidity. Extremities: No clubbing, cyanosis, or edema, radial pulse +2/4, capillary refill <2sec. Skin: urticaria on R side of abdomen extending around to midway along his back that is improving, bruising extending across R flank surrounding stapled incision, MISAEL drain with dark bloody fluid in pouch but less viscous today, Skin warm and dry, no jaundice Neurologic: Cranial nerves II through XII grossly intact, no focal deficits, strength within normal limits in all extremities Psych: Cooperative with exam, good eye contact, cognitive function intact, judgment good insight good, speech clear, thought process logical, and goal directed - VTE Documentation of Mechanical Device: Intermittent pneumatic compression device <Jack Bailey - Last Filed: 03/17/17 17:58> Date of Encounter: 03/17/17 Procedures/tests Complete & Pending: Procedures Performed prior 72 hours Category Date Time Status ECG 12 lead ECG [ECG] Routine Y 03/16/17 00:02 Completed EKG [ECG 12 lead ECG] [ECG] Routine Y 03/17/17 07:30 Ordered EKG [ECG 12 lead ECG] [ECG] Stat Y 03/16/17 09:29 Completed EV limited echo w enhance Routine Y 03/16/17 16:25 Completed Date of admission: 03/11/17 14:01 [facility] care physician: [facility] Consults: 03/11/17 14:30 Consult to Cardiology [CONS] Routine Comment: Consulting Provider: Cardiology Madina Reason for Consult: NSTEMI Time Notified: 14:31 Call Completed: Yes 03/11/17 15:02 Consult to Surgery [CONS] Routine Consulting Provider: Surgery Madina Surgical Reason for Consult: Left hip hematoma Time Notified: 15:04 Call Completed: Yes 03/14/17 14:22 Consult to Occupational Therapy [CONS] Routine Comment: Evaluate, develop and implement POC Reason for Consult: ble weakness Consult to Physical Therapy [CONS] Routine Comment: Evaluate, develop and implement POC Reason for Consult: ble edema 03/16/17 11:32 Consult to Cardiology [CONS] Routine Comment: Consulting Provider: Sofia Painter Reason for Consult: Vtach last night, prolonged Qtc = 471 this morning, a couple of beats of Vtach yesterday before starting Levoquin. Changed to Ceftrixone and doxy this morning. Time Notified: 08:55 Call Completed: No Hospital course: Mr. Weber is a 66 year old male - Time Spent with Patient Total time spent providing and/or coordinating discharge services: - Constitutional Vitals: Temp Pulse Resp BP Pulse Ox 97.6 F 73 16 132/74 93 03/17/17 15:39 03/17/17 15:45 03/17/17 15:39 03/17/17 15:39 03/17/17 15:39 - Attending Attestation I examined this patient and my medical decision-making was reviewed with the Resident Physician. I agree with the documented findings, disposition and treatment plan as described except to the extent set forth below. Patient elected to not have cardiac catheterization during this hospitalization. Cardiology signed off. He has no chest pain. A repeat the EKG was done this morning and per my review a QTC interval is trending down from yesterday. His magnesium level is within normal limits. He has no chest pain. On exam he is in no acute distress, heart exam reveals regular S1 and S2 with no murmurs. Lungs are clear. Plan: Discharge home with close follow-up with PCP and refer to outpatient cardiology for further workup. I have spent 40 minutes coordinating this discharge. During this hospitalization he was treated for pneumonia which was confirmed as a diagnosis. Sepsis was ruled out during this admission. He received treatment for acute diastolic heart failure which was confirmed as a diagnosis.
--- NOTE | 2017-03-17 16:37 | Physician Discharge Referral ---
Home Health/Hosp Referral Info Transfer to: Home Health Attending Provider: Dr. Bailey Provider in Charge Post Discharge: PCP - Diagnosis (1) Hip hematoma, left Priority: Primary Status: Acute (2) NSTEMI (non-ST elevated myocardial infarction) Priority: Primary Status: Acute (3) Acute on chronic respiratory failure with hypoxemia Priority: Primary Status: Acute (4) Hyperlipidemia Priority: Secondary Status: Chronic (5) Acute blood loss as cause of postoperative anemia Priority: Primary Status: Acute (6) Diabetes Priority: Secondary Status: Chronic (7) Hypomagnesemia Priority: Primary Status: Resolved (8) Pneumonia Priority: Primary Status: Acute (9) QT prolongation Priority: Primary Status: Acute - Respiratory Orders Smoking Cessation: Smoking cessation has been advised. For more information, call the [employer] Quit Line at 5-847-VCWF-NOW. - Services Needed Following services are medically necessary services: Nursing (wound care), Physical Therapy, Occupational Therapy (wound care) - Transfer Medications Prescriptions: Cefdinir [Omnicef] 300 mg PO BID #6 capsule Doxycycline 100 mg PO BID #6 capsule Furosemide [Lasix] 40 mg PO BID #28 tab Home Medications: Albuterol Sulfate [Albuterol Inhaler] 2 puff IH Q6HR PRN 12/03/15 [History] Aspirin Enteric Coated [Aspirin EC] 81 mg PO DAILY 12/03/15 [History] Atorvastatin [Lipitor] 10 mg PO HS 12/03/15 [History] FLUoxetine HCl [Prozac] 40 mg PO QAM 12/03/15 [History] Furosemide [Lasix] 20 mg PO BID 12/03/15 [History] Gabapentin [Neurontin] 900 mg PO TID 12/03/15 [History] Ipratropium [ATROVENT Inhaler] 2 puff IH QID PRN 12/03/15 [History] Multivitamin [One Daily Essential] 1 tab PO DAILY 12/03/15 [History] Nitroglycerin [Nitrostat] 0.4 mg SL AD PRN 12/03/15 [History] Potassium Chloride [K-Tab ER] 10 meq PO DAILY 12/03/15 [History] Trazodone HCl [TraZODone] 200 mg PO HS 12/03/15 [History] Calcium Citrate 200 mg PO DAILY 03/07/17 [History] Carvedilol [Coreg] 25 mg PO BID 03/07/17 [History] Dicyclomine [Bentyl] 20 mg PO BID PRN 03/07/17 [History] Isosorbide MONOnitrate (24 HR) [Imdur] 60 mg PO DAILY 03/07/17 [History] Metformin HCl [Glucophage] 1,000 mg PO BID 03/07/17 [History] Pantoprazole Sodium [Protonix] 40 mg PO DAILY 03/07/17 [History] Tamsulosin [Flomax] 0.4 mg PO DAILY 03/07/17 [History] Docusate [Colace] 100 mg PO BID PRN #30 03/08/17 [Rx] OxyCODONE/APAP 10/325 [Percocet 10/325 MG] 1 tab PO Q4HR PRN 03/12/17 [History] Cefdinir [Omnicef] 300 mg PO BID #6 capsule 03/17/17 [Rx] Doxycycline 100 mg PO BID #6 capsule 03/17/17 [Rx] Furosemide [Lasix] 40 mg PO BID #28 tab 03/17/17 [Rx] Allergies/Adverse Reactions: 3 Allergy/AdvReac Type Severity Reaction Status Date / Time levofloxacin [From Levaquin] AdvReac Seizure Verified 03/16/17 20:21 Certification: Further, I certify that my clinical findings support that this patient is homebound (i.e. absences from home require considerable and taxing effort and are for medical reasons or mandaeism services or infrequently or short duration when for other reasons) because: Homebound Reason: Leaving home requires considerable and taxing effort due to condition Attestation: My signature below is to certify that this patient is under my care and that I, or nurse practitioner, or a physician's content assistant working with me, has a face-to -face encounter with this patient.
--- NOTE | 2017-03-20 08:34 | Electrocardiograph Report ---
[place] [id number] Test Date: 2017-03-16 Pat Name: Isaac Weber Department: 110 Room: 2N04 Gender: M [employer]: : 1950 Requested By: Jack Bailey Order Number: [id number] Reading MD: Prashanth Noyola DO Measurements Intervals [place] Rate: 68 P: 9 OR: 139 QRS: 38 QRSD: 97 T: -2 QT: 434 QTc: 450 Interpretive Statements SINUS RHYTHM NONSPECIFIC ST & T-WAVE ABNORMALITY Electronically Signed On 03-19-2017 9:30:16 EDT by Prashanth Noyola DO
--- NOTE | 2017-03-20 08:35 | Electrocardiograph Report ---
[place] [id number] Test Date: 2017-03-16 Pat Name: Isaac Weber Department: 110 Room: 2N04 Gender: M Senior Marketing Associate: LUCIA : 1950 Requested By: Evelyn Anaya Order Number: [id number] Reading MD: Prashanth Noyola DO Measurements Intervals [place] Rate: 74 P: 22 DE: 131 QRS: 35 QRSD: 88 T: -65 QT: 443 QTc: 471 Interpretive Statements Sinus rhythm with PVCs Anterolateral ST-T changes possible due to ischemia Nonspecific inferior ST-T changes Electronically Signed On 03-19-2017 9:40:03 EDT by Prashanth Noyola DO
--- NOTE | 2017-03-20 08:49 | Electrocardiograph Report ---
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
== END 2017-03-17 17:00 | disposition home or self-care (01) | DRG 280 ==
LOC: EMEROO 11:12 → SUATTDRO 14:01 → 2NNU 14:01
PROVIDERS: ADMIT Internal Medicine; ATTEND Internal Medicine